=== PATIENT | male | born 1960 | race Two or more races ===

== ENCOUNTER 2016-09-10 19:50 | Emergency (ER) | payer MEDICARE, OTHER ==
[~2016-09-10] VITALS: Ht 172.7 cm; Wt 81.6 kg
[2016-09-10 20:35] LABS: Basophils # (auto) 0.1 uL; Basophils % (auto) 1.1 % (0.0-2.0); Eosinophils # (auto) 0.2 uL; Eosinophils % (auto) 2.2 % (0.0-7.0); Hematocrit 45.5 % (41.0-53.0); Lymphocytes # (auto) 2.8 uL; Lymphocytes % (auto) 37.6 % (10.0-50.0); Mean Corpuscular Hemoglobin 31.3 pg (28.0-32.0); Mean Corpuscular Volume 94.6 fL (80.0-100.0); Mean Platelet Volume 8.5 fL (7.4-10.4); Monocytes # (auto) 0.6 uL; Monocytes % (auto) 8.2 % (0.0-12.0); Neutrophils # (auto) 3.8 uL; Neutrophils % (auto) 50.9 % (37.0-80.0); Platelet Count (auto) 254 10^3/uL (140-450); Red Cell Distribution Width 12.9 % (11.6-16.0); White Blood Cell 7.5 10^3/uL (4.4-10.8)
[2016-09-10 20:57] LABS: Albumin 3.6 g/dL (3.4-5.0); BUN/Creatinine Ratio 12.8; Calcium 8.2 mg/dL (8.5-10.1); Magnesium 2.5 mg/dL (1.6-2.6); Potassium 3.6 mmol/L (3.5-5.1)
[2016-09-10 20:59] LABS: Bilirubin, Total 0.2 mg/dL (0.2-1.0); Total Protein 7.8 g/dL (6.4-8.2)
[2016-09-10 23:25] VITALS: BP 118/67
== END 2016-09-10 23:27 | disposition home or self-care (01) ==
LOC: EDBD 19:50 → ER 20:00
DX: F41.9 Anxiety disorder, unspecified (principal); G82.20 Paraplegia, unspecified
CPT/HCPCS: 36415; 70450; 80053; 83735; 84484; 85025; 85049; 93005

== ENCOUNTER 2021-07-29 12:18 | Inpatient (IN) | payer MEDICARE, OTHER ==
[~2021-07-29] VITALS: Ht 172.7 cm; Wt 80.5 kg
[2021-07-29] MEDS ORDERED: SODIUM CHLORIDE 0.9% 1,000 ML IV ONE ×2 (12:45→17:30)
[2021-07-29 13:25] LABS: White Blood Cell 16.4 10^3/uL (4.4-10.8)
[2021-07-29 13:27] LABS: Hematocrit 45.8 % (41.0-53.0); Hemoglobin 15.2 g/dL (13.5-17.5); Mean Corpuscular Hemoglobin 31.3 pg (28.0-32.0); Mean Corpuscular Hgb Conc. 33.2 g/dL (32.0-36.0); Mean Corpuscular Volume 94.1 fL (80.0-100.0); Red Blood Cells 4.86 10^6/uL (4.5-5.90); Red Cell Distribution Width 13.6 % (11.8-14.3)
[2021-07-29 13:28] LABS: Albumin 2.2 g/dL (3.4-5.0); BUN/Creatinine Ratio 23.2; Basophils % (manual) 0 (0.0-2.0); Blast Cells 0; Calcium 8.6 mg/dL (8.5-10.1); Eosinophils % (manual) 0 (0-7); Metamyelocytes % 0; Potassium 3.9 mmol/L (3.5-5.1); Promyelocytes % 0; Reactive Lymphocytes 0
[2021-07-29 13:30] LABS: Lactic Acid w/Reflex 2.3 mmol/L (0.4-2.0)
[2021-07-29 13:31] LABS: Bilirubin, Total 0.9 mg/dL (0.2-1.0); Total Protein 7.8 g/dL (6.4-8.2)
[2021-07-29 13:52] LABS: Band Neutrophils % (manual) 15; Lymphocytes % (manual) 12 (10.0-50.0); Monocytes % (manual) 3 (0-12); Myelocytes % 2
[2021-07-29] MEDS ORDERED: cefTRIAXone 1GM/50ML D5W 50 ML IV ONE (14:15)
[2021-07-29 22:08] LABS: Urine Bacteria MANY /hpf (None Seen); Urine Blood TRACE /uL (Negative); Urine Hyaline Cast FEW /lpf (0 - 2); Urine Mucus FEW (None Seen); Urine Specific Gravity 1.017 (1.001-1.035); Urine WBC 25 /hpf (0 - 3)
[2021-07-30] MEDS ORDERED: MORPHINE SULFATE INJECTION 2 MG/ML SYRG IV PRN (02:45)
[2021-07-30] MEDS ORDERED: MORPHINE SULFATE 4 MG/ML SYR/VIAL IV PRN (02:45)
[2021-07-30] MEDS ORDERED: NITROGLYCERIN 0.4 MG SL TAB SL PRN (02:45)
[2021-07-30] MEDS ORDERED: ONDANSETRON HCL 4 MG/2 ML VIAL IV PRN (02:45)
[2021-07-30] MEDS: SODIUM CHLORIDE 0.9% 1,000 ML IV SCH ×2 (03:35→11:32)
[2021-07-30] MEDS: HEPARIN SODIUM (PORCINE) 5000 UNITS/ML 1ML VIAL SC SCH ×3 (06:08→22:58)
[2021-07-30 08:16] LABS: Basophils # (auto) 0.1 10 ^3/uL (0-0.2); Basophils % (auto) 0.5 % (0.0-2.0); Eosinophils # (auto) 0.1 10 ^3/uL (0-0.8); Eosinophils % (auto) 0.6 % (0.0-7.0); Hematocrit 39.8 % (41.0-53.0); Lymphocytes # (auto) 1.3 10 ^3/uL (0.4-5.4); Lymphocytes % (auto) 9.6 % (10.0-50.0); Mean Corpuscular Hemoglobin 31.4 pg (28.0-32.0); Mean Corpuscular Hgb Conc. 32.7 g/dL (32.0-36.0); Mean Corpuscular Volume 95.8 fL (80.0-100.0); Neutrophils # (auto) 11.2 10 ^3/uL (1.6-8.6); Neutrophils % (auto) 82.3 % (37.0-80.0); Nucleated Red Blood Cells % 0.1 %; Red Blood Cells 4.15 10^6/uL (4.5-5.90); Red Cell Distribution Width 13.8 % (11.8-14.3); White Blood Cell 13.7 10^3/uL (4.4-10.8)
[2021-07-30 08:30] LABS: INR 1.21 (0.9-1.15); Partial Thromboplastin Time 32.6 sec (23.6-33.0)
[2021-07-30 08:47] LABS: BUN/Creatinine Ratio 25.8; Calcium 7.5 mg/dL (8.5-10.1); Potassium 3.6 mmol/L (3.5-5.1)
[2021-07-30] MEDS: cefTRIAXone 1GM/50ML D5W 50 ML IV SCH (09:10)
[2021-07-30] MEDS: SODIUM BICARBONATE 50ML VIAL 50 ML in SOD CHL 0.45% 1,000 ML IV SCH (18:04)
[2021-07-30 19:08] LABS: Magnesium 2.3 mg/dL (1.6-2.6)
[2021-07-31 01:17] VITALS: BP 105/72
[2021-07-31] MEDS: SODIUM BICARBONATE 50ML VIAL 50 ML in SOD CHL 0.45% 1,000 ML IV SCH ×3 (01:30→18:20)
[2021-07-31 05:00] VITALS: BP 128/70
[2021-07-31] MEDS: HEPARIN SODIUM (PORCINE) 5000 UNITS/ML 1ML VIAL SC SCH ×2 (06:14→13:52)
[2021-07-31 06:51] LABS: Basophils # (auto) 0 10 ^3/uL (0-0.2); Basophils % (auto) 0.2 % (0.0-2.0); Eosinophils # (auto) 0 10 ^3/uL (0-0.8); Eosinophils % (auto) 0.3 % (0.0-7.0); Hematocrit 36.6 % (41.0-53.0); Hemoglobin 12.2 g/dL (13.5-17.5); Lymphocytes # (auto) 1.4 10 ^3/uL (0.4-5.4); Lymphocytes % (auto) 11.2 % (10.0-50.0); Mean Corpuscular Hemoglobin 31.5 pg (28.0-32.0); Mean Corpuscular Hgb Conc. 33.2 g/dL (32.0-36.0); Mean Corpuscular Volume 94.8 fL (80.0-100.0); Monocytes # (auto) 0.7 10 ^3/uL (0-1.3); Monocytes % (auto) 5.6 % (0.0-12.0); Neutrophils # (auto) 10.7 10 ^3/uL (1.6-8.6); Neutrophils % (auto) 82.7 % (37.0-80.0); Red Blood Cells 3.86 10^6/uL (4.5-5.90); Red Cell Distribution Width 13.9 % (11.8-14.3); White Blood Cell 12.9 10^3/uL (4.4-10.8)
[2021-07-31 07:04] LABS: Potassium 3.3 mmol/L (3.5-5.1)
[2021-07-31 07:10] LABS: BUN/Creatinine Ratio 20.3; Calcium 7.9 mg/dL (8.5-10.1)
[2021-07-31 09:00] VITALS: BP 107/66
[2021-07-31 13:04] VITALS: BP 104/65
[2021-07-31] MEDS: cefTRIAXone 1GM/50ML D5W 50 ML IV SCH (13:51)
[2021-07-31 17:00] VITALS: BP 144/83
[2021-07-31 21:31] LABS: Basophils # (auto) 0.1 10 ^3/uL (0-0.2); Eosinophils # (auto) 0 10 ^3/uL (0-0.8); Eosinophils % (auto) 0.4 % (0.0-7.0)
[2021-07-31 21:33] LABS: Basophils % (auto) 0.6 % (0.0-2.0); Lymphocytes # (auto) 1.4 10 ^3/uL (0.4-5.4); Lymphocytes % (auto) 13.1 % (10.0-50.0); Mean Corpuscular Hemoglobin 30.4 pg (28.0-32.0); Mean Corpuscular Hgb Conc. 32.3 g/dL (32.0-36.0); Mean Corpuscular Volume 94.1 fL (80.0-100.0); Monocytes # (auto) 0.6 10 ^3/uL (0-1.3); Monocytes % (auto) 5.7 % (0.0-12.0); Neutrophils # (auto) 8.6 10 ^3/uL (1.6-8.6); Neutrophils % (auto) 80.2 % (37.0-80.0); Nucleated Red Blood Cells % 0.1 %; Red Blood Cells 3.94 10^6/uL (4.5-5.90); Red Cell Distribution Width 13.7 % (11.8-14.3); White Blood Cell 10.7 10^3/uL (4.4-10.8)
[2021-07-31 22:00] VITALS: BP 126/81
[2021-08-01 05:00] VITALS: BP 137/83
[2021-08-01] MEDS: SODIUM BICARBONATE 50ML VIAL 50 ML in SOD CHL 0.45% 1,000 ML IV SCH ×4 (05:04→21:15)
[2021-08-01 05:28] LABS: Basophils # (auto) 0.1 10 ^3/uL (0-0.2); Basophils % (auto) 0.5 % (0.0-2.0); Eosinophils # (auto) 0 10 ^3/uL (0-0.8); Eosinophils % (auto) 0.4 % (0.0-7.0); Hematocrit 35.9 % (41.0-53.0); Hemoglobin 11.9 g/dL (13.5-17.5); Lymphocytes # (auto) 1.5 10 ^3/uL (0.4-5.4); Lymphocytes % (auto) 13.7 % (10.0-50.0); Mean Corpuscular Hemoglobin 31.2 pg (28.0-32.0); Mean Corpuscular Hgb Conc. 33.1 g/dL (32.0-36.0); Mean Corpuscular Volume 94.2 fL (80.0-100.0); Monocytes # (auto) 0.7 10 ^3/uL (0-1.3); Monocytes % (auto) 6.6 % (0.0-12.0); Neutrophils # (auto) 8.8 10 ^3/uL (1.6-8.6); Neutrophils % (auto) 78.8 % (37.0-80.0); Nucleated Red Blood Cells % 0.1 %; Red Blood Cells 3.81 10^6/uL (4.5-5.90); Red Cell Distribution Width 13.3 % (11.8-14.3); White Blood Cell 11.1 10^3/uL (4.4-10.8)
[2021-08-01 09:00] VITALS: BP 159/85
[2021-08-01] MEDS: cefTRIAXone 1GM/50ML D5W 50 ML IV SCH (09:55)
[2021-08-01 13:00] VITALS: BP 111/68
[2021-08-01] MEDS ORDERED: POTASSIUM CHL 20 Meq TABLET PO ONE (13:15)
[2021-08-01 13:55] LABS: Hepatitis C Antibody Negative (Negative)
[2021-08-01 17:00] VITALS: BP 142/83
[2021-08-01] MEDS ORDERED: AMOX500T86 PO ×2 (20:38→20:45)
[2021-08-01 22:24] VITALS: BP 119/72
[2021-08-02 05:00] VITALS: BP 137/75
[2021-08-02] MEDS: SODIUM BICARBONATE 50ML VIAL 50 ML in SOD CHL 0.45% 1,000 ML IV SCH ×2 (05:35→16:44)
[2021-08-02 09:00] VITALS: BP 126/75
[2021-08-02] MEDS: cefTRIAXone 1GM/50ML D5W 50 ML IV SCH (09:37)
[2021-08-02] MEDS ORDERED: AMOX500T86 PO ×2 (11:45→13:08)
== END 2021-08-02 16:36 | disposition home health service (06) | DRG 689 ==
LOC: ER 12:18 → EDBD 12:18 → TELE 07-30 02:35 → TELE-CENTR 07-30 22:15
PROVIDERS: ADMIT Hospitalist; ATTEND Hospitalist
DX: N30.00 Acute cystitis without hematuria (principal); N17.0 Acute kidney failure with tubular necrosis; G82.20 Paraplegia, unspecified; E88.09 Other disorders of plasma-protein metabolism, not elsewhere classified; Z20.822 Contact with and (suspected) exposure to COVID-19; N18.9 Chronic kidney disease, unspecified; E87.6 Hypokalemia; R19.7 Diarrhea, unspecified; E78.5 Hyperlipidemia, unspecified; Z80.9 Family history of malignant neoplasm, unspecified; Z87.440 Personal history of urinary (tract) infections; B96.20 Unspecified Escherichia coli [E. coli] as the cause of diseases classified elsewhere; B96.1 Klebsiella pneumoniae [K. pneumoniae] as the cause of diseases classified elsewhere
CPT/HCPCS: 36415; 70450; 71045; 72125; 76775; 80048; 80053; 81001; 82306; 83036; 83605; 83735; 83970; 84100; 84550; 85007; 85025; 85027; 85048; 85610; 85730; 86803; 87040; 87045; 87086; 87088; 87186; 87340; 87426; 87427; 93005; 96361; 96365; G0378; J0696

== ENCOUNTER 2021-09-04 10:21 | Inpatient (IN) | payer OTHER ==
[~2021-09-04] VITALS: Ht 172.7 cm; Wt 74.5 kg
[~2021-09-04 10:21] MED LIST: AMOX500T86 PO
[2021-09-04 11:41] LABS: Basophils # (auto) 0.1 10 ^3/uL (0-0.2); Basophils % (auto) 0.7 % (0.0-2.0); Eosinophils # (auto) 0.1 10 ^3/uL (0-0.8); Lymphocytes # (auto) 1.8 10 ^3/uL (0.4-5.4); Mean Corpuscular Hgb Conc. 33.2 g/dL (32.0-36.0)
[2021-09-04 11:42] LABS: Eosinophils % (auto) 0.7 % (0.0-7.0); Hematocrit 34.3 % (41.0-53.0); Hemoglobin 11.4 g/dL (13.5-17.5); Mean Corpuscular Volume 90.2 fL (80.0-100.0); Monocytes # (auto) 0.6 10 ^3/uL (0-1.3); Monocytes % (auto) 6.3 % (0.0-12.0); Neutrophils # (auto) 7.6 10 ^3/uL (1.6-8.6); Neutrophils % (auto) 74.3 % (37.0-80.0); Red Cell Distribution Width 14.7 % (11.8-14.3); White Blood Cell 10.2 10^3/uL (4.4-10.8)
[2021-09-04 12:00] LABS: Calcium 8.5 mg/dL (8.5-10.1); Potassium 3.6 mmol/L (3.5-5.1)
[2021-09-04 12:03] LABS: Bilirubin, Total 0.6 mg/dL (0.2-1.0); Total Protein 7.4 g/dL (6.4-8.2)
[2021-09-04 12:06] LABS: Lactic Acid w/Reflex 2.2 mmol/L (0.4-2.0)
[2021-09-04] MEDS ORDERED: IOHEXOL 300 MG/ML 100ML BOTTLE IJ ONE (13:15)
[2021-09-04 14:30] LABS: Urine Bacteria MANY /hpf (None Seen); Urine Blood 1+ /uL (Negative); Urine Specific Gravity 1.021 (1.001-1.035); Urine WBC 374 /hpf (0 - 3); Urine WBC Clumps PRESENT /hpf (None Seen)
[2021-09-04] MEDS ORDERED: SODIUM CHLORIDE 0.9% 500 ML IV ONE (17:15)
[2021-09-04] MEDS ORDERED: PIPERACILLIN-TAZOB 3.375GM 100 ML IV ONE (17:15)
[2021-09-04] MEDS ORDERED: VANCOMYCIN 1GM/250ML 250 ML IV ONE (17:15)
[2021-09-04] MEDS: ENOXAPARIN SOD 80 MG/0.8ML SYRINGE SC SCH (22:45)
[2021-09-04] MEDS ORDERED: hydrALAZINE HCL 10 MG TAB PO PRN (23:45)
[2021-09-04] MEDS ORDERED: ACETAMINOPHEN 325 MG TAB PO PRN (23:45)
[2021-09-04] MEDS ORDERED: HYDROcodone-ACET 5/325MG TAB PO PRN (23:45)
[2021-09-05] MEDS ORDERED: CLINDAMYCIN 600MG IV 50 ML IV SCH (06:00)
[2021-09-05] MEDS: PIPERACILLIN-TAZOB 3.375GM 100 ML IV SCH ×5 (06:28→20:50)
[2021-09-05] MEDS ORDERED: ENOXAPARIN SOD 80 MG/0.8ML SYRINGE SC SCH (10:00)
[2021-09-05] MEDS: ENOXAPARIN SOD 80 MG/0.8ML SYRINGE SC SCH ×2 (10:00→22:00)
[2021-09-05 10:11] VITALS: BP 104/71
[2021-09-05 13:00] VITALS: BP 134/61
[2021-09-05 13:14] LABS: Urine Bacteria FEW /hpf (None Seen); Urine Blood 2+ /uL (Negative); Urine Mucus FEW (None Seen); Urine Specific Gravity 1.039 (1.001-1.035); Urine WBC 158 /hpf (0 - 3)
[2021-09-05] MEDS ORDERED: ROCURONIUM 10MG/ML 10ML VIAL IV ONE (15:35)
[2021-09-05] MEDS ORDERED: fentaNYL CITRATE 100 MCG/2 ML VL ONE (15:35)
[2021-09-05] MEDS ORDERED: MIDAZOLAM HCL 2MG/2ML 2ml VIAL (1mg/ml) ONE (15:35)
[2021-09-05] MEDS: FLUCONAZOLE 200MG/100ML 100 ML IV SCH ×2 (16:00→19:00)
[2021-09-05] MEDS ORDERED: ONDANSETRON HCL 4 MG/2 ML VIAL IV PRN (16:30)
[2021-09-05] MEDS ORDERED: HYDROmorphone HCL 2 MG/ML VL IV PRN (16:30)
[2021-09-05 22:00] VITALS: BP 96/62
[2021-09-06 05:00] VITALS: BP 99/70
[2021-09-06] MEDS: PIPERACILLIN-TAZOB 3.375GM 100 ML IV SCH ×3 (06:46→18:19)
[2021-09-06 09:00] VITALS: BP 118/62
[2021-09-06] MEDS: ENOXAPARIN SOD 80 MG/0.8ML SYRINGE SC SCH ×2 (09:53→23:19)
[2021-09-06] MEDS: FLUCONAZOLE 200MG/100ML 100 ML IV SCH ×2 (09:53→11:49)
[2021-09-06 13:00] VITALS: BP 93/52
[2021-09-06 17:00] VITALS: BP 93/52
[2021-09-06] MEDS ORDERED: TPN PER PHARMACY 0 ML IV SCH (18:30)
[2021-09-06] MEDS ORDERED: AMINO ACID INFUSION IN D10W 1,000 ML IV NR (20:00)
[2021-09-07] MEDS ORDERED: DEXTROSE (50%) 50ML SYRG IV SCH
[2021-09-07] MEDS: PIPERACILLIN-TAZOB 3.375GM 100 ML IV SCH ×4 (00:32→18:31)
[2021-09-07] MEDS: ACCU-CHEK COMFORT CURVE STRIP VI SCH ×4 (00:34→18:29)
[2021-09-07 05:00] VITALS: BP 102/60
[2021-09-07 05:35] LABS: INR 1.1 (0.9-1.15); Partial Thromboplastin Time 39.1 sec (23.6-33.0)
[2021-09-07 05:42] LABS: Magnesium 2.3 mg/dL (1.6-2.6)
[2021-09-07 05:50] LABS: Phosphorus 4.2 mg/dL (2.5-4.90); Pre Albumin 3.5 mg/dL (20.0-40.0)
[2021-09-07 05:56] LABS: Basophils # (auto) 0 10 ^3/uL (0-0.2); Basophils % (auto) 0.7 % (0.0-2.0); Eosinophils # (auto) 0.1 10 ^3/uL (0-0.8); Eosinophils % (auto) 1.6 % (0.0-7.0); Hematocrit 26.9 % (41.0-53.0); Hemoglobin 8.9 g/dL (13.5-17.5); Lymphocytes % (auto) 29.4 % (10.0-50.0); Mean Corpuscular Hemoglobin 29.8 pg (28.0-32.0); Mean Corpuscular Hgb Conc. 33.1 g/dL (32.0-36.0); Mean Corpuscular Volume 90.1 fL (80.0-100.0); Monocytes # (auto) 0.7 10 ^3/uL (0-1.3); Monocytes % (auto) 10.6 % (0.0-12.0); Neutrophils % (auto) 57.7 % (37.0-80.0); Nucleated Red Blood Cells % 0.1 %; Red Blood Cells 2.99 10^6/uL (4.5-5.90); Red Cell Distribution Width 14.5 % (11.8-14.3); White Blood Cell 6.9 10^3/uL (4.4-10.8)
[2021-09-07] MEDS: InsuLIN REG 1unit/0.01ml Soln (100units/ml) SC SCH ×4 (06:00→18:00)
[2021-09-07 09:00] VITALS: BP 110/84
[2021-09-07] MEDS: ENOXAPARIN SOD 80 MG/0.8ML SYRINGE SC SCH ×2 (09:55→22:07)
[2021-09-07] MEDS: FLUCONAZOLE 200MG/100ML 100 ML IV SCH ×2 (09:55→11:26)
[2021-09-07] MEDS ORDERED: LIDOCAINE 1% (LOCAL ANESTH.) PF 5ml SDV ID ONE (11:15)
[2021-09-07 12:13] LABS: Albumin 1.6 g/dL (3.4-5.0); Calcium 7.9 mg/dL (8.5-10.1); Potassium 3.3 mmol/L (3.5-5.1)
[2021-09-07 12:17] LABS: Bilirubin, Total 0.6 mg/dL (0.2-1.0)
[2021-09-07 13:00] VITALS: BP 123/76
[2021-09-07] MEDS ORDERED: POTASSIUM CHL 20MEQ/50ML 50 ML IV ONE (13:15)
[2021-09-07 17:00] VITALS: BP 158/88
[2021-09-07] MEDS ORDERED: TPN PER PHARMACY IV NR ×8 (20:00)
[2021-09-07 22:00] VITALS: BP 120/80
[2021-09-07] MEDS: SODIUM CHLOR 0.9% PF (SALINE LOCK) 10ML VIAL/SYR IV SCH (22:07)
[2021-09-08] MEDS: PIPERACILLIN-TAZOB 3.375GM 100 ML IV SCH ×4 (00:19→18:48)
[2021-09-08 05:00] VITALS: BP 124/78
[2021-09-08] MEDS: InsuLIN REG 1unit/0.01ml Soln (100units/ml) SC SCH ×4 (06:00→18:00)
[2021-09-08] MEDS: ACCU-CHEK COMFORT CURVE STRIP VI SCH ×4 (06:17→18:49)
[2021-09-08 06:32] LABS: Albumin 1.5 g/dL (3.4-5.0); Calcium 7.7 mg/dL (8.5-10.1); Magnesium 2.2 mg/dL (1.6-2.6)
[2021-09-08 06:36] LABS: BUN/Creatinine Ratio 11.4; Bilirubin, Total 0.5 mg/dL (0.2-1.0); Phosphorus 2.9 mg/dL (2.5-4.90)
[2021-09-08 09:00] VITALS: BP 120/85
[2021-09-08] MEDS: SODIUM CHLOR 0.9% PF (SALINE LOCK) 10ML VIAL/SYR IV SCH ×2 (09:33→21:35)
[2021-09-08] MEDS: ENOXAPARIN SOD 80 MG/0.8ML SYRINGE SC SCH ×2 (09:33→21:35)
[2021-09-08] MEDS: FLUCONAZOLE 200MG/100ML 100 ML IV SCH ×2 (09:33→11:17)
[2021-09-08] MEDS ORDERED: POTASSIUM PHOSPHATE 22 MEQ in SODIUM CHL 0.9% 100 ML IV SCH (10:30)
[2021-09-08] MEDS ORDERED: POTASSIUM PHOSPHATE 22 MEQ in SODIUM CHL 0.9% 100 ML IV ONE (12:00)
[2021-09-08 13:00] VITALS: BP 148/86
[2021-09-08 17:00] VITALS: BP 158/88
[2021-09-08 18:35] LABS: Basophils # (auto) 0.1 10 ^3/uL (0-0.2); Basophils % (auto) 0.9 % (0.0-2.0); Eosinophils # (auto) 0.1 10 ^3/uL (0-0.8); Eosinophils % (auto) 1.9 % (0.0-7.0); Hematocrit 27.5 % (41.0-53.0); Hemoglobin 9.1 g/dL (13.5-17.5); Lymphocytes # (auto) 1.7 10 ^3/uL (0.4-5.4); Lymphocytes % (auto) 28.2 % (10.0-50.0); Mean Corpuscular Hemoglobin 29.7 pg (28.0-32.0); Mean Corpuscular Hgb Conc. 33.1 g/dL (32.0-36.0); Mean Corpuscular Volume 89.6 fL (80.0-100.0); Monocytes # (auto) 0.5 10 ^3/uL (0-1.3); Neutrophils # (auto) 3.7 10 ^3/uL (1.6-8.6); Nucleated Red Blood Cells % 0.1 %; Red Blood Cells 3.07 10^6/uL (4.5-5.90); Red Cell Distribution Width 14.6 % (11.8-14.3)
[2021-09-08 18:44] LABS: INR 1.05 (0.9-1.15)
[2021-09-08 18:55] LABS: Albumin 1.6 g/dL (3.4-5.0); BUN/Creatinine Ratio 8.9; Calcium 7.8 mg/dL (8.5-10.1); Potassium 3.1 mmol/L (3.5-5.1)
[2021-09-08 18:58] LABS: Bilirubin, Total 0.3 mg/dL (0.2-1.0); Total Protein 6.2 g/dL (6.4-8.2)
[2021-09-08] MEDS ORDERED: TPN PER PHARMACY IV NR ×8 (20:00)
[2021-09-08 22:00] VITALS: BP 122/69
[2021-09-09] MEDS: ACCU-CHEK COMFORT CURVE STRIP VI SCH ×4 (00:01→17:28)
[2021-09-09] MEDS: PIPERACILLIN-TAZOB 3.375GM 100 ML IV SCH ×4 (00:01→18:00)
[2021-09-09 05:00] VITALS: BP 119/79
[2021-09-09] MEDS: InsuLIN REG 1unit/0.01ml Soln (100units/ml) SC SCH ×4 (05:58→17:28)
[2021-09-09 08:08] LABS: Potassium 3.1 mmol/L (3.5-5.1)
[2021-09-09 08:24] LABS: Albumin 1.6 g/dL (3.4-5.0); BUN/Creatinine Ratio 9.6; Bilirubin, Total 0.4 mg/dL (0.2-1.0); Calcium 7.6 mg/dL (8.5-10.1); Phosphorus 3.2 mg/dL (2.5-4.90)
[2021-09-09] MEDS ORDERED: POTASSIUM PHOSPHATE 22 MEQ in SODIUM CHL 0.9% 100 ML IV ONE (08:45)
[2021-09-09 09:00] VITALS: BP 115/73
[2021-09-09] MEDS: FLUCONAZOLE 200MG/100ML 100 ML IV SCH ×2 (10:29→11:00)
[2021-09-09] MEDS: SODIUM CHLOR 0.9% PF (SALINE LOCK) 10ML VIAL/SYR IV SCH ×2 (10:29→22:00)
[2021-09-09] MEDS: ENOXAPARIN SOD 80 MG/0.8ML SYRINGE SC SCH ×2 (10:29→22:00)
[2021-09-09] MEDS ORDERED: ceFAZolin 1GM VL ONE (10:59)
[2021-09-09] MEDS ORDERED: fentaNYL CITRATE 100 MCG/2 ML VL ONE (12:27)
[2021-09-09] MEDS ORDERED: MEPERIDINE HCL (25 MG/ML) 1ML VIAL ONE (12:27)
[2021-09-09] MEDS ORDERED: MIDAZOLAM HCL 2MG/2ML 2ml VIAL (1mg/ml) ONE (12:28)
[2021-09-09] MEDS ORDERED: ceFAZolin 1GM/50ML 100 ML IV ONE (12:30)
[2021-09-09] MEDS ORDERED: POTASSIUM CHLORIDE 40 MEQ, LIDOCAINE 1% (LOCAL ANESTH.) 4 ML in SODIUM CHL 0.9% 250 ML IV ONE (12:45)
[2021-09-09] MEDS ORDERED: DexAMETHasone SOD PHOS 10MG/1ML VIAL INJ ONE (13:10)
[2021-09-09] MEDS ORDERED: PROPOFOL 10 MG/ML 20 ML IV ONE (13:10)
[2021-09-09] MEDS ORDERED: ePHEDrine SULFATE 50 MG/ML AMP IV PRN (14:45)
[2021-09-09] MEDS ORDERED: ONDANSETRON HCL 4 MG/2 ML VIAL IV PRN (14:45)
[2021-09-09] MEDS ORDERED: LABETALOL HCL 5 MG/ML 4ML SYRINGE IV PRN (14:45)
[2021-09-09] MEDS ORDERED: MORPHINE SULFATE 4 MG/ML SYR/VIAL IV PRN (14:45)
[2021-09-09] MEDS ORDERED: MIDAZOLAM HCL 2MG/2ML 2ml VIAL (1mg/ml) IV PRN (14:45)
[2021-09-09] MEDS ORDERED: HYDROmorphone HCL 2 MG/ML VL IV PRN (14:45)
[2021-09-09 15:00] VITALS: BP 132/87
[2021-09-09 17:00] VITALS: BP 151/85
[2021-09-09] MEDS: TPN PER PHARMACY IV NR ×8 (21:05)
[2021-09-09 21:49] VITALS: BP 129/85
[2021-09-10] MEDS: ACCU-CHEK COMFORT CURVE STRIP VI SCH ×4 (00:14→18:00)
[2021-09-10] MEDS: PIPERACILLIN-TAZOB 3.375GM 100 ML IV SCH ×4 (00:14→18:00)
[2021-09-10] MEDS: InsuLIN REG 1unit/0.01ml Soln (100units/ml) SC SCH ×4 (00:15→18:00)
[2021-09-10 04:33] VITALS: BP 127/70
[2021-09-10 08:26] LABS: Potassium 4.1 mmol/L (3.5-5.1)
[2021-09-10 08:27] LABS: Basophils # (auto) 0 10 ^3/uL (0-0.2); Basophils % (auto) 0.1 % (0.0-2.0); Eosinophils # (auto) 0 10 ^3/uL (0-0.8); Hematocrit 26.3 % (41.0-53.0); Hemoglobin 8.8 g/dL (13.5-17.5); INR 1.02 (0.9-1.15); Lymphocytes # (auto) 1.2 10 ^3/uL (0.4-5.4); Lymphocytes % (auto) 14.5 % (10.0-50.0); Mean Corpuscular Hemoglobin 29.7 pg (28.0-32.0); Mean Corpuscular Hgb Conc. 33.5 g/dL (32.0-36.0); Mean Corpuscular Volume 88.8 fL (80.0-100.0); Monocytes # (auto) 0.4 10 ^3/uL (0-1.3); Monocytes % (auto) 4.6 % (0.0-12.0); Neutrophils # (auto) 6.5 10 ^3/uL (1.6-8.6); Neutrophils % (auto) 80.8 % (37.0-80.0); Nucleated Red Blood Cells % 0.1 %; Partial Thromboplastin Time 33.1 sec (23.6-33.0); Red Blood Cells 2.97 10^6/uL (4.5-5.90); Red Cell Distribution Width 14.4 % (11.8-14.3)
[2021-09-10 08:40] LABS: Albumin 1.6 g/dL (3.4-5.0); BUN/Creatinine Ratio 11.8; Bilirubin, Total 0.2 mg/dL (0.2-1.0); Calcium 7.7 mg/dL (8.5-10.1); Magnesium 2.9 mg/dL (1.6-2.6); Phosphorus 2.2 mg/dL (2.5-4.90); Total Protein 5.4 g/dL (6.4-8.2)
[2021-09-10] MEDS: FLUCONAZOLE 200MG/100ML 100 ML IV SCH ×2 (10:08→11:00)
[2021-09-10] MEDS: SODIUM CHLOR 0.9% PF (SALINE LOCK) 10ML VIAL/SYR IV SCH ×2 (10:08→22:06)
[2021-09-10] MEDS: ENOXAPARIN SOD 80 MG/0.8ML SYRINGE SC SCH ×2 (10:08→22:06)
[2021-09-10] MEDS ORDERED: SODIUM PHOSPHATES 20 MEQ in SODIUM CHL 0.9% 100 ML IV ONE (10:15)
[2021-09-10] MEDS: TPN PER PHARMACY IV NR ×8 (19:55)
[2021-09-10] MEDS ORDERED: TPN PER PHARMACY IV NR ×6 (20:00)
[2021-09-10 22:56] VITALS: BP 150/88
[2021-09-11] MEDS: ACCU-CHEK COMFORT CURVE STRIP VI SCH ×4 (00:08→18:00)
[2021-09-11] MEDS: InsuLIN REG 1unit/0.01ml Soln (100units/ml) SC SCH ×4 (00:10→18:00)
[2021-09-11 05:07] LABS: Hematocrit 26.8 % (41.0-53.0); Hemoglobin 8.7 g/dL (13.5-17.5)
[2021-09-11 05:26] VITALS: BP 128/80
[2021-09-11 05:31] LABS: Potassium 3.8 mmol/L (3.5-5.1)
[2021-09-11 05:45] LABS: Albumin 1.8 g/dL (3.4-5.0); BUN/Creatinine Ratio 11.4; Calcium 7.9 mg/dL (8.5-10.1); Magnesium 2.8 mg/dL (1.6-2.6); Total Protein 6.4 g/dL (6.4-8.2)
[2021-09-11] MEDS: PIPERACILLIN-TAZOB 3.375GM 100 ML IV SCH ×4 (06:03→18:00)
[2021-09-11 06:20] LABS: Bilirubin, Total 0.3 mg/dL (0.2-1.0)
[2021-09-11 07:49] VITALS: BP 135/76
[2021-09-11] MEDS: SODIUM CHLOR 0.9% PF (SALINE LOCK) 10ML VIAL/SYR IV SCH ×2 (10:26→21:32)
[2021-09-11] MEDS: FLUCONAZOLE 200MG/100ML 100 ML IV SCH ×2 (10:26→11:00)
[2021-09-11] MEDS: ENOXAPARIN SOD 80 MG/0.8ML SYRINGE SC SCH ×2 (10:26→21:32)
[2021-09-11] MEDS ORDERED: POTASSIUM PHOSPHATE 26.4 MEQ in SODIUM CHL 0.9% 100 ML IV ONE (11:00)
[2021-09-11 11:38] VITALS: BP 119/74
[2021-09-11] MEDS ORDERED: GOLYTELY 4L KIT PO ONE (14:45)
[2021-09-11 16:56] VITALS: BP 87/53
[2021-09-11] MEDS ORDERED: SODIUM CHLORIDE 0.9% 1,000 ML IV ONE (17:00)
[2021-09-11 18:05] VITALS: BP 119/72
[2021-09-11 19:22] LABS: Hematocrit 22.7 % (41.0-53.0); Hemoglobin 7.5 g/dL (13.5-17.5)
[2021-09-11] MEDS ORDERED: TPN PER PHARMACY IV NR ×7 (20:00)
[2021-09-11 22:00] VITALS: BP 117/80
[2021-09-12] MEDS: ACCU-CHEK COMFORT CURVE STRIP VI SCH ×5 (00:15→23:52)
[2021-09-12] MEDS: PIPERACILLIN-TAZOB 3.375GM 100 ML IV SCH ×4 (00:16→23:52)
[2021-09-12 05:00] VITALS: BP 128/80
[2021-09-12] MEDS: InsuLIN REG 1unit/0.01ml Soln (100units/ml) SC SCH ×4 (05:36→18:00)
[2021-09-12 09:00] VITALS: BP 123/78
[2021-09-12] MEDS: FLUCONAZOLE 200MG/100ML 100 ML IV SCH ×2 (09:45→11:00)
[2021-09-12] MEDS: ENOXAPARIN SOD 80 MG/0.8ML SYRINGE SC SCH ×3 (09:46→21:34)
[2021-09-12] MEDS: SODIUM CHLOR 0.9% PF (SALINE LOCK) 10ML VIAL/SYR IV SCH ×2 (09:46→21:31)
[2021-09-12 12:18] LABS: Basophils # (auto) 0 10 ^3/uL (0-0.2); Eosinophils # (auto) 0.1 10 ^3/uL (0-0.8); Eosinophils % (auto) 0.7 % (0.0-7.0); Monocytes # (auto) 0.5 10 ^3/uL (0-1.3)
[2021-09-12 12:20] LABS: Basophils % (auto) 0.5 % (0.0-2.0); Hematocrit 22.6 % (41.0-53.0); Hemoglobin 7.7 g/dL (13.5-17.5); Lymphocytes # (auto) 1.7 10 ^3/uL (0.4-5.4); Lymphocytes % (auto) 19.9 % (10.0-50.0); Mean Corpuscular Hemoglobin 30.4 pg (28.0-32.0); Mean Corpuscular Hgb Conc. 33.9 g/dL (32.0-36.0); Mean Corpuscular Volume 89.6 fL (80.0-100.0); Monocytes % (auto) 6.3 % (0.0-12.0); Neutrophils # (auto) 6.3 10 ^3/uL (1.6-8.6); Neutrophils % (auto) 72.6 % (37.0-80.0); Nucleated Red Blood Cells % 0.1 %; Red Blood Cells 2.52 10^6/uL (4.5-5.90); Red Cell Distribution Width 14.8 % (11.8-14.3); White Blood Cell 8.7 10^3/uL (4.4-10.8)
[2021-09-12 12:28] LABS: INR 1.02 (0.9-1.15); Partial Thromboplastin Time 30.8 sec (23.6-33.0)
[2021-09-12 12:30] VITALS: BP 124/74
[2021-09-12 12:40] LABS: Albumin 1.5 g/dL (3.4-5.0); Calcium 7.5 mg/dL (8.5-10.1); Magnesium 1.8 mg/dL (1.6-2.6); Potassium 3.7 mmol/L (3.5-5.1)
[2021-09-12 12:42] LABS: BUN/Creatinine Ratio 16.3
[2021-09-12 12:54] LABS: Bilirubin, Total 0.2 mg/dL (0.2-1.0); Phosphorus 2.7 mg/dL (2.5-4.90); Total Protein 5.6 g/dL (6.4-8.2)
[2021-09-12] MEDS: SODIUM FERR GLUC 62.5MG/5ML 125 MG in SODIUM CHL 0.9% 100 ML IV SCH (16:44)
[2021-09-12] MEDS ORDERED: GOLYTELY 4L KIT PO ONE (16:45)
[2021-09-12 17:00] VITALS: BP 127/86
[2021-09-12] MEDS: ONDANSETRON HCL 4 MG/2 ML VIAL IV PRN ×2 (19:42→23:52)
[2021-09-12] MEDS ORDERED: TPN PER PHARMACY IV NR ×8 (20:00)
[2021-09-12 22:29] VITALS: BP 112/75
[2021-09-12] MEDS ORDERED: PANTOPRAZOLE 40 MG/10 ML VIAL INJ IV ONE (23:15)
[2021-09-13] MEDS: InsuLIN REG 1unit/0.01ml Soln (100units/ml) SC SCH ×5 (00:04→23:47)
[2021-09-13] MEDS: ONDANSETRON HCL 4 MG/2 ML VIAL IV PRN ×3 (00:33→12:47)
[2021-09-13] MEDS: MORPHINE SULFATE INJECTION 2 MG/ML SYRG IV PRN ×3 (04:28→13:55)
[2021-09-13 05:07] VITALS: BP 134/89
[2021-09-13] MEDS: PIPERACILLIN-TAZOB 3.375GM 100 ML IV SCH ×3 (06:25→23:46)
[2021-09-13] MEDS: ACCU-CHEK COMFORT CURVE STRIP VI SCH ×4 (06:25→23:46)
[2021-09-13 07:06] LABS: Potassium 3.8 mmol/L (3.5-5.1)
[2021-09-13 07:18] LABS: Albumin 1.7 g/dL (3.4-5.0); Bilirubin, Total 0.3 mg/dL (0.2-1.0); Calcium 7.6 mg/dL (8.5-10.1); Magnesium 1.7 mg/dL (1.6-2.6); Phosphorus 3.2 mg/dL (2.5-4.90); Total Protein 5.4 g/dL (6.4-8.2)
[2021-09-13] MEDS ORDERED: diphenhdrAMINE HCL 50 MG/1 ML VL ONE (08:40)
[2021-09-13] MEDS ORDERED: MIDAZOLAM HCL 5 MG/ML-1ML VIAL ONE (08:40)
[2021-09-13] MEDS ORDERED: fentaNYL CITRATE 100 MCG/2 ML VL ONE (08:40)
[2021-09-13] MEDS: PANTOPRAZOLE 40 MG/10 ML VIAL INJ IV SCH (09:14)
[2021-09-13] MEDS: FLUCONAZOLE 200MG/100ML 100 ML IV SCH ×2 (09:14→11:00)
[2021-09-13] MEDS: SODIUM CHLOR 0.9% PF (SALINE LOCK) 10ML VIAL/SYR IV SCH ×2 (09:15→21:47)
[2021-09-13] MEDS: ENOXAPARIN SOD 80 MG/0.8ML SYRINGE SC SCH ×2 (09:15→21:47)
[2021-09-13 13:00] VITALS: BP 155/97
[2021-09-13] MEDS: SODIUM FERR GLUC 62.5MG/5ML 125 MG in SODIUM CHL 0.9% 100 ML IV SCH (13:40)
[2021-09-13 17:00] VITALS: BP 95/65
[2021-09-13] MEDS ORDERED: TPN PER PHARMACY IV NR ×10 (20:00)
[2021-09-13 22:16] VITALS: BP 110/74
[2021-09-14] VITALS (8 sets, daily range): BP systolic 110–152; BP diastolic 69–88
[2021-09-14] MEDS: ACCU-CHEK COMFORT CURVE STRIP VI SCH ×3 (06:00→18:37)
[2021-09-14] MEDS: InsuLIN REG 1unit/0.01ml Soln (100units/ml) SC SCH ×3 (06:00→18:00)
[2021-09-14] MEDS: PIPERACILLIN-TAZOB 3.375GM 100 ML IV SCH ×3 (06:00→18:37)
[2021-09-14 08:28] LABS: Albumin 1.6 g/dL (3.4-5.0); Magnesium 2.8 mg/dL (1.6-2.6); Potassium 3.5 mmol/L (3.5-5.1)
[2021-09-14 08:34] LABS: BUN/Creatinine Ratio 25.6; Bilirubin, Total 0.2 mg/dL (0.2-1.0); Phosphorus 3.1 mg/dL (2.5-4.90); Pre Albumin 13.6 mg/dL (20.0-40.0); Total Protein 5.7 g/dL (6.4-8.2)
[2021-09-14 09:29] LABS: Monocytes # (auto) 0.6 10 ^3/uL (0-1.3); Nucleated Red Blood Cells % 0.1 %; White Blood Cell 8.4 10^3/uL (4.4-10.8)
[2021-09-14 09:31] LABS: Basophils # (auto) 0 10 ^3/uL (0-0.2); Basophils % (auto) 0.4 % (0.0-2.0); Eosinophils # (auto) 0.1 10 ^3/uL (0-0.8); Eosinophils % (auto) 0.6 % (0.0-7.0); Hematocrit 20.6 % (41.0-53.0); Lymphocytes # (auto) 1.8 10 ^3/uL (0.4-5.4); Lymphocytes % (auto) 21.7 % (10.0-50.0); Mean Corpuscular Hemoglobin 29.8 pg (28.0-32.0); Mean Corpuscular Volume 90.1 fL (80.0-100.0); Monocytes % (auto) 7.7 % (0.0-12.0); Neutrophils # (auto) 5.8 10 ^3/uL (1.6-8.6); Neutrophils % (auto) 69.6 % (37.0-80.0); Red Blood Cells 2.29 10^6/uL (4.5-5.90); Red Cell Distribution Width 15.3 % (11.8-14.3)
[2021-09-14 09:43] LABS: Hemoglobin 6.8 g/dL (13.5-17.5)
[2021-09-14] MEDS: ENOXAPARIN SOD 80 MG/0.8ML SYRINGE SC SCH ×2 (10:00→21:59)
[2021-09-14] MEDS: FLUCONAZOLE 200MG/100ML 100 ML IV SCH ×2 (10:36→12:51)
[2021-09-14] MEDS: PANTOPRAZOLE 40 MG/10 ML VIAL INJ IV SCH (10:36)
[2021-09-14] MEDS: SODIUM CHLOR 0.9% PF (SALINE LOCK) 10ML VIAL/SYR IV SCH ×2 (10:37→21:59)
[2021-09-14] MEDS: POTASSIUM CHL 10MEQ/50ML 50 ML IV SCH ×2 (10:37→12:28)
[2021-09-14] MEDS: SODIUM FERR GLUC 62.5MG/5ML 125 MG in SODIUM CHL 0.9% 100 ML IV SCH (14:21)
[2021-09-14] MEDS: ALBUMIN 25% 100 ML IV SCH (15:39)
[2021-09-14] MEDS ORDERED: TPN PER PHARMACY IV NR ×8 (20:00)
[2021-09-15] MEDS: ACCU-CHEK COMFORT CURVE STRIP VI SCH ×4 (00:09→17:54)
[2021-09-15] MEDS: PIPERACILLIN-TAZOB 3.375GM 100 ML IV SCH ×4 (00:11→18:00)
[2021-09-15 00:27] VITALS: BP 142/62
[2021-09-15 02:14] LABS: Hematocrit 28.8 % (41.0-53.0); Hemoglobin 9.4 g/dL (13.5-17.5)
[2021-09-15] MEDS: ONDANSETRON HCL 4 MG/2 ML VIAL IV PRN ×2 (02:28→16:50)
[2021-09-15 04:53] VITALS: BP 146/81
[2021-09-15 06:14] LABS: Albumin 2.2 g/dL (3.4-5.0); Magnesium 2.8 mg/dL (1.6-2.6); Potassium 3.9 mmol/L (3.5-5.1)
[2021-09-15 06:17] LABS: BUN/Creatinine Ratio 18.9; Bilirubin, Total 0.4 mg/dL (0.2-1.0); Phosphorus 2.9 mg/dL (2.5-4.90); Total Protein 6.4 g/dL (6.4-8.2)
[2021-09-15] MEDS: InsuLIN REG 1unit/0.01ml Soln (100units/ml) SC SCH ×4 (06:28→17:53)
[2021-09-15 08:15] VITALS: BP 110/73
[2021-09-15] MEDS: ALBUMIN 25% 100 ML IV SCH (10:00)
[2021-09-15] MEDS: SODIUM CHLOR 0.9% PF (SALINE LOCK) 10ML VIAL/SYR IV SCH ×2 (10:00→22:00)
[2021-09-15] MEDS: ENOXAPARIN SOD 80 MG/0.8ML SYRINGE SC SCH ×2 (10:30→22:01)
[2021-09-15] MEDS: PANTOPRAZOLE 40 MG/10 ML VIAL INJ IV SCH (10:30)
[2021-09-15] MEDS: FLUCONAZOLE 200MG/100ML 100 ML IV SCH ×4 (10:31→14:05)
[2021-09-15 12:15] VITALS: BP 118/73
[2021-09-15] MEDS ORDERED: IRON SUCROSE COMPLEX 200 MG in SODIUM CHL 0.9% 100 ML IV ONE (14:00)
[2021-09-15] MEDS ORDERED: SODIUM FERR GLUC 62.5MG/5ML 125 MG in SODIUM CHL 0.9% 100 ML IV ONE (14:15)
[2021-09-15] MEDS: SODIUM FERR GLUC 62.5MG/5ML 125 MG in SODIUM CHL 0.9% 100 ML IV SCH (16:51)
[2021-09-15 17:15] VITALS: BP 125/75
[2021-09-15] MEDS ORDERED: TPN PER PHARMACY IV NR ×9 (20:00)
[2021-09-15 22:00] VITALS: BP 127/81
[2021-09-16] MEDS: ACCU-CHEK COMFORT CURVE STRIP VI SCH ×4 (00:55→18:04)
[2021-09-16] MEDS: PIPERACILLIN-TAZOB 3.375GM 100 ML IV SCH ×4 (00:55→18:00)
[2021-09-16 05:00] VITALS: BP 128/81
[2021-09-16] MEDS: InsuLIN REG 1unit/0.01ml Soln (100units/ml) SC SCH ×4 (06:18→18:00)
[2021-09-16] MEDS: ONDANSETRON HCL 4 MG/2 ML VIAL IV PRN ×3 (06:50→21:17)
[2021-09-16 07:16] LABS: Calcium 8.5 mg/dL (8.5-10.1); Magnesium 2.1 mg/dL (1.6-2.6); Potassium 3.5 mmol/L (3.5-5.1)
[2021-09-16 07:18] LABS: BUN/Creatinine Ratio 21.4
[2021-09-16 07:21] LABS: Bilirubin, Total 0.4 mg/dL (0.2-1.0); Phosphorus 3.1 mg/dL (2.5-4.90); Total Protein 6.4 g/dL (6.4-8.2)
[2021-09-16 08:00] VITALS: BP 119/79
[2021-09-16 09:05] VITALS: BP 119/79
[2021-09-16] MEDS: ALBUMIN 25% 100 ML IV SCH (10:14)
[2021-09-16] MEDS: ENOXAPARIN SOD 80 MG/0.8ML SYRINGE SC SCH ×2 (10:29→21:21)
[2021-09-16] MEDS: PANTOPRAZOLE 40 MG/10 ML VIAL INJ IV SCH (10:35)
[2021-09-16] MEDS: SODIUM CHLOR 0.9% PF (SALINE LOCK) 10ML VIAL/SYR IV SCH ×2 (10:41→21:21)
[2021-09-16] MEDS ORDERED: POTASSIUM CHL 10MEQ/50ML 50 ML IV ONE ×3 (12:00→17:45)
[2021-09-16 13:00] VITALS: BP 122/79
[2021-09-16] MEDS: MORPHINE SULFATE INJECTION 2 MG/ML SYRG IV PRN ×2 (15:20→21:17)
[2021-09-16 17:10] VITALS: BP 109/73
[2021-09-16] MEDS ORDERED: TPN PER PHARMACY IV NR ×8 (20:00)
[2021-09-16 20:02] LABS: Basophils # (auto) 0.1 10 ^3/uL (0-0.2); Eosinophils # (auto) 0.1 10 ^3/uL (0-0.8); Hemoglobin 7.4 g/dL (13.5-17.5); Monocytes # (auto) 0.6 10 ^3/uL (0-1.3); Red Blood Cells 2.47 10^6/uL (4.5-5.90)
[2021-09-16 20:06] LABS: Basophils % (auto) 1.1 % (0.0-2.0); Eosinophils % (auto) 0.9 % (0.0-7.0); Lymphocytes # (auto) 1.7 10 ^3/uL (0.4-5.4); Lymphocytes % (auto) 27.3 % (10.0-50.0); Mean Corpuscular Hemoglobin 29.9 pg (28.0-32.0); Mean Corpuscular Hgb Conc. 33.6 g/dL (32.0-36.0); Mean Corpuscular Volume 89.1 fL (80.0-100.0); Monocytes % (auto) 9.8 % (0.0-12.0); Neutrophils # (auto) 3.8 10 ^3/uL (1.6-8.6); Neutrophils % (auto) 60.9 % (37.0-80.0); Nucleated Red Blood Cells % 0.2 %; Red Cell Distribution Width 15.2 % (11.8-14.3); White Blood Cell 6.3 10^3/uL (4.4-10.8)
[2021-09-17] MEDS: ACCU-CHEK COMFORT CURVE STRIP VI SCH ×4 (00:15→16:48)
[2021-09-17] MEDS: PIPERACILLIN-TAZOB 3.375GM 100 ML IV SCH ×4 (00:38→16:47)
[2021-09-17 04:00] VITALS: BP 120/80
[2021-09-17] MEDS: ONDANSETRON HCL 4 MG/2 ML VIAL IV PRN (04:33)
[2021-09-17] MEDS: MORPHINE SULFATE INJECTION 2 MG/ML SYRG IV PRN (04:35)
[2021-09-17] MEDS: InsuLIN REG 1unit/0.01ml Soln (100units/ml) SC SCH ×4 (06:00→16:48)
[2021-09-17 07:10] LABS: Albumin 1.9 g/dL (3.4-5.0); Calcium 8.4 mg/dL (8.5-10.1); Magnesium 2.1 mg/dL (1.6-2.6); Potassium 3.9 mmol/L (3.5-5.1)
[2021-09-17 07:13] LABS: BUN/Creatinine Ratio 24.2
[2021-09-17 07:15] LABS: Bilirubin, Total 0.4 mg/dL (0.2-1.0); Phosphorus 2.8 mg/dL (2.5-4.90); Total Protein 6.2 g/dL (6.4-8.2)
[2021-09-17 09:00] VITALS: BP 136/85
[2021-09-17] MEDS: ENOXAPARIN SOD 80 MG/0.8ML SYRINGE SC SCH ×2 (10:00→22:43)
[2021-09-17] MEDS: PANTOPRAZOLE 40 MG/10 ML VIAL INJ IV SCH (10:40)
[2021-09-17] MEDS: FLUCONAZOLE 200MG/100ML 100 ML IV SCH ×2 (10:40→11:44)
[2021-09-17] MEDS: SODIUM CHLOR 0.9% PF (SALINE LOCK) 10ML VIAL/SYR IV SCH ×2 (10:41→22:43)
[2021-09-17 13:00] VITALS: BP 136/85
[2021-09-17 17:00] VITALS: BP 123/87
[2021-09-17 20:00] VITALS: BP 129/85
[2021-09-17] MEDS ORDERED: TPN PER PHARMACY IV NR ×8 (20:00)
[2021-09-17 22:00] VITALS: BP_SYST 127; BP_SYST 129; BP_DIAS 85
[2021-09-18] VITALS (9 sets, daily range): BP systolic 88–135; BP diastolic 62–86
[2021-09-18] MEDS: PIPERACILLIN-TAZOB 3.375GM 100 ML IV SCH ×4 (00:01→17:46)
[2021-09-18] MEDS: MORPHINE SULFATE INJECTION 2 MG/ML SYRG IV PRN (00:08)
[2021-09-18] MEDS: InsuLIN REG 1unit/0.01ml Soln (100units/ml) SC SCH ×4 (06:00→17:48)
[2021-09-18] MEDS: ACCU-CHEK COMFORT CURVE STRIP VI SCH ×4 (06:00→17:48)
[2021-09-18 08:38] LABS: Albumin 2.3 g/dL (3.4-5.0); Calcium 8.2 mg/dL (8.5-10.1); Magnesium 2.7 mg/dL (1.6-2.6); Potassium 3.8 mmol/L (3.5-5.1)
[2021-09-18 08:43] LABS: BUN/Creatinine Ratio 22.6; Bilirubin, Total 0.6 mg/dL (0.2-1.0); Total Protein 6.5 g/dL (6.4-8.2)
[2021-09-18] MEDS ORDERED: fentaNYL CITRATE 100 MCG/2 ML VL ONE (09:24)
[2021-09-18] MEDS ORDERED: MIDAZOLAM HCL 2MG/2ML 2ml VIAL (1mg/ml) ONE ×2 (09:25→11:56)
[2021-09-18] MEDS ORDERED: LIDOCAINE 2%HCL (LOCAL ANESTH.) INJ 20ML MDV ONE (09:25)
[2021-09-18] MEDS ORDERED: IOHEXOL 350 MG/ML 100ML IJ ONE (09:25)
[2021-09-18] MEDS: ENOXAPARIN SOD 80 MG/0.8ML SYRINGE SC SCH (10:00)
[2021-09-18] MEDS: SODIUM CHLOR 0.9% PF (SALINE LOCK) 10ML VIAL/SYR IV SCH ×2 (10:00→23:09)
[2021-09-18] MEDS: FLUCONAZOLE 200MG/100ML 100 ML IV SCH ×2 (11:00→11:45)
[2021-09-18] MEDS: PANTOPRAZOLE 40 MG/10 ML VIAL INJ IV SCH (11:45)
[2021-09-18] MEDS ORDERED: PROPOFOL 10 MG/ML 20 ML IV ONE (11:56)
[2021-09-18] MEDS ORDERED: SODIUM CHLORIDE LOCK 10 ML ONE (11:56)
[2021-09-18] MEDS ORDERED: ONDANSETRON HCL 4 MG/2 ML VIAL ONE (11:56)
[2021-09-18] MEDS ORDERED: ceFAZolin 1GM VL ONE (13:26)
[2021-09-18] MEDS ORDERED: TPN PER PHARMACY IV NR ×9 (20:00)
[2021-09-18 23:32] LABS: Red Cell Distribution Width 15.4 % (11.8-14.3); White Blood Cell 4.9 10^3/uL (4.4-10.8)
[2021-09-18 23:34] LABS: Hematocrit 20.9 % (41.0-53.0); Mean Corpuscular Hgb Conc. 33.7 g/dL (32.0-36.0); Mean Corpuscular Volume 89.1 fL (80.0-100.0); Red Blood Cells 2.34 10^6/uL (4.5-5.90)
[2021-09-18 23:46] LABS: Basophils % (manual) 0 (0.0-2.0); Blast Cells 0; Metamyelocytes % 0; Promyelocytes % 0; Reactive Lymphocytes 0
[2021-09-19] MEDS: PIPERACILLIN-TAZOB 3.375GM 100 ML IV SCH ×4 (00:20→18:00)
[2021-09-19] MEDS: ACCU-CHEK COMFORT CURVE STRIP VI SCH ×4 (00:23→17:59)
[2021-09-19 01:23] LABS: Band Neutrophils % (manual) 12; Eosinophils % (manual) 1 (0-7); Lymphocytes % (manual) 27 (10.0-50.0); Monocytes % (manual) 10 (0-12); Myelocytes % 1
[2021-09-19 05:00] VITALS: BP 112/73
[2021-09-19] MEDS: InsuLIN REG 1unit/0.01ml Soln (100units/ml) SC SCH ×4 (05:19→17:59)
[2021-09-19 08:18] LABS: Potassium 3.8 mmol/L (3.5-5.1)
[2021-09-19 08:27] LABS: Albumin 2.1 g/dL (3.4-5.0); BUN/Creatinine Ratio 24.2; Bilirubin, Total 0.5 mg/dL (0.2-1.0); Calcium 7.9 mg/dL (8.5-10.1); Magnesium 2.6 mg/dL (1.6-2.6); Phosphorus 3.2 mg/dL (2.5-4.90); Total Protein 6.3 g/dL (6.4-8.2)
[2021-09-19 08:30] LABS: Basophils # (auto) 0.1 10 ^3/uL (0-0.2); Basophils % (auto) 1.2 % (0.0-2.0); Eosinophils # (auto) 0 10 ^3/uL (0-0.8); Eosinophils % (auto) 0.9 % (0.0-7.0); Hematocrit 21.8 % (41.0-53.0); Hemoglobin 7.1 g/dL (13.5-17.5); Lymphocytes # (auto) 1.9 10 ^3/uL (0.4-5.4); Mean Corpuscular Hemoglobin 29.5 pg (28.0-32.0); Mean Corpuscular Hgb Conc. 32.5 g/dL (32.0-36.0); Mean Corpuscular Volume 90.7 fL (80.0-100.0); Monocytes # (auto) 0.5 10 ^3/uL (0-1.3); Monocytes % (auto) 10.3 % (0.0-12.0); Neutrophils # (auto) 2.6 10 ^3/uL (1.6-8.6); Neutrophils % (auto) 50.6 % (37.0-80.0); Red Blood Cells 2.41 10^6/uL (4.5-5.90); Red Cell Distribution Width 15.4 % (11.8-14.3); White Blood Cell 5.1 10^3/uL (4.4-10.8)
[2021-09-19 09:00] VITALS: BP 110/73
[2021-09-19] MEDS: FLUCONAZOLE 200MG/100ML 100 ML IV SCH ×2 (09:43→12:01)
[2021-09-19] MEDS: PANTOPRAZOLE 40 MG/10 ML VIAL INJ IV SCH (09:43)
[2021-09-19] MEDS: SODIUM CHLOR 0.9% PF (SALINE LOCK) 10ML VIAL/SYR IV SCH ×2 (09:43→22:00)
[2021-09-19 13:00] VITALS: BP 114/74
[2021-09-19 17:00] VITALS: BP 125/75
[2021-09-19] MEDS ORDERED: TPN PER PHARMACY IV NR ×9 (20:00)
[2021-09-19] MEDS: ONDANSETRON HCL 4 MG/2 ML VIAL IV PRN (20:35)
[2021-09-19 21:00] VITALS: BP 129/84
[2021-09-19] MEDS: MORPHINE SULFATE INJECTION 2 MG/ML SYRG IV PRN (21:18)
[2021-09-20] MEDS: PIPERACILLIN-TAZOB 3.375GM 100 ML IV SCH ×5 (00:02→23:49)
[2021-09-20] MEDS: ACCU-CHEK COMFORT CURVE STRIP VI SCH ×5 (00:03→23:22)
[2021-09-20 04:40] VITALS: BP 117/88
[2021-09-20] MEDS: ONDANSETRON HCL 4 MG/2 ML VIAL IV PRN ×3 (06:24→22:13)
[2021-09-20] MEDS: InsuLIN REG 1unit/0.01ml Soln (100units/ml) SC SCH ×5 (06:28→23:21)
[2021-09-20] MEDS: PANTOPRAZOLE 40 MG/10 ML VIAL INJ IV SCH (08:55)
[2021-09-20] MEDS: FLUCONAZOLE 200MG/100ML 100 ML IV SCH ×2 (08:55→10:47)
[2021-09-20 09:00] VITALS: BP 115/77
[2021-09-20] MEDS: CALCIUM CARB 500 MG CHEW TAB PO PRN (09:00)
[2021-09-20 10:17] LABS: Calcium 8.5 mg/dL (8.5-10.1); Potassium 3.9 mmol/L (3.5-5.1)
[2021-09-20 10:26] LABS: Albumin 2.2 g/dL (3.4-5.0); Bilirubin, Total 0.6 mg/dL (0.2-1.0); Magnesium 1.8 mg/dL (1.6-2.6); Phosphorus 2.5 mg/dL (2.5-4.90); Pre Albumin 26.6 mg/dL (20.0-40.0); Total Protein 6.8 g/dL (6.4-8.2)
[2021-09-20] MEDS: SODIUM CHLOR 0.9% PF (SALINE LOCK) 10ML VIAL/SYR IV SCH ×2 (10:47→22:12)
[2021-09-20 13:00] VITALS: BP 117/77
[2021-09-20] MEDS ORDERED: POTASSIUM PHOSP 22MEQ(15MMOLE) in NS 100 ML IV ONE (14:00)
[2021-09-20 17:13] VITALS: BP 111/76
[2021-09-20 18:14] LABS: Basophils # (auto) 0 10 ^3/uL (0-0.2); Eosinophils # (auto) 0.1 10 ^3/uL (0-0.8); Hemoglobin 7.2 g/dL (13.5-17.5); Nucleated Red Blood Cells % 0.1 %
[2021-09-20 18:17] LABS: Basophils % (auto) 0.7 % (0.0-2.0); Eosinophils % (auto) 0.9 % (0.0-7.0); Hematocrit 21.7 % (41.0-53.0); Lymphocytes # (auto) 1.2 10 ^3/uL (0.4-5.4); Lymphocytes % (auto) 19.2 % (10.0-50.0); Mean Corpuscular Hemoglobin 29.8 pg (28.0-32.0); Mean Corpuscular Hgb Conc. 33.1 g/dL (32.0-36.0); Mean Corpuscular Volume 90.1 fL (80.0-100.0); Monocytes # (auto) 0.4 10 ^3/uL (0-1.3); Monocytes % (auto) 5.9 % (0.0-12.0); Neutrophils # (auto) 4.5 10 ^3/uL (1.6-8.6); Neutrophils % (auto) 73.3 % (37.0-80.0); Red Blood Cells 2.41 10^6/uL (4.5-5.90); Red Cell Distribution Width 15.8 % (11.8-14.3); White Blood Cell 6.2 10^3/uL (4.4-10.8)
[2021-09-20 20:00] VITALS: BP 105/69
[2021-09-20] MEDS ORDERED: FAT EMULSION30 IV NR ×9 (20:00)
[2021-09-20] MEDS ORDERED: [UNRECOGNIZED DRUG - OTHER] IV NR ×9 (20:00)
[2021-09-20] MEDS ORDERED: SODIUM PHOSPHATES IV NR ×9 (20:00)
[2021-09-20] MEDS ORDERED: POTASSIUM CHLORIDE IV NR ×9 (20:00)
[2021-09-20 22:00] VITALS: BP 105/69
[2021-09-21] VITALS (8 sets, daily range): BP systolic 90–117; BP diastolic 57–77
[2021-09-21] MEDS: InsuLIN REG 1unit/0.01ml Soln (100units/ml) SC SCH ×3 (06:00→17:39)
[2021-09-21] MEDS: ONDANSETRON HCL 4 MG/2 ML VIAL IV PRN (06:07)
[2021-09-21] MEDS: PIPERACILLIN-TAZOB 3.375GM 100 ML IV SCH ×3 (06:07→17:39)
[2021-09-21] MEDS: ACCU-CHEK COMFORT CURVE STRIP VI SCH ×3 (06:08→17:39)
[2021-09-21 07:38] LABS: Potassium 3.4 mmol/L (3.5-5.1)
[2021-09-21 07:43] LABS: BUN/Creatinine Ratio 28.7; Magnesium 2.6 mg/dL (1.6-2.6)
[2021-09-21 08:14] LABS: Basophils # (auto) 0 10 ^3/uL (0-0.2); Basophils % (auto) 0.7 % (0.0-2.0); Eosinophils # (auto) 0.1 10 ^3/uL (0-0.8); Eosinophils % (auto) 1.1 % (0.0-7.0); Hematocrit 20.3 % (41.0-53.0); Lymphocytes # (auto) 1.7 10 ^3/uL (0.4-5.4); Lymphocytes % (auto) 30.2 % (10.0-50.0); Mean Corpuscular Hemoglobin 29.7 pg (28.0-32.0); Mean Corpuscular Volume 90.1 fL (80.0-100.0); Monocytes # (auto) 0.3 10 ^3/uL (0-1.3); Monocytes % (auto) 6.3 % (0.0-12.0); Neutrophils # (auto) 3.4 10 ^3/uL (1.6-8.6); Neutrophils % (auto) 61.7 % (37.0-80.0); Nucleated Red Blood Cells % 0.2 %; Red Blood Cells 2.25 10^6/uL (4.5-5.90); Red Cell Distribution Width 15.6 % (11.8-14.3); White Blood Cell 5.5 10^3/uL (4.4-10.8)
[2021-09-21 08:21] LABS: Hemoglobin 6.7 g/dL (13.5-17.5)
[2021-09-21] MEDS: PANTOPRAZOLE 40 MG/10 ML VIAL INJ IV SCH (09:35)
[2021-09-21] MEDS: FLUCONAZOLE 200MG/100ML 100 ML IV SCH ×2 (09:35→11:00)
[2021-09-21] MEDS: SODIUM CHLOR 0.9% PF (SALINE LOCK) 10ML VIAL/SYR IV SCH ×2 (09:35→21:17)
[2021-09-21 11:42] LABS: Albumin 2.2 g/dL (3.4-5.0); Bilirubin, Direct 0.1 mg/dL (0-0.2)
[2021-09-21 11:45] LABS: Bilirubin, Total 0.5 mg/dL (0.2-1.0); Total Protein 6.6 g/dL (6.4-8.2)
[2021-09-21] MEDS ORDERED: POTASSIUM CHL 10MEQ/50ML 50 ML IV ONE (12:00)
[2021-09-21] MEDS ORDERED: TPN PER PHARMACY IV NR ×8 (20:00)
[2021-09-21] MEDS: CALCIUM CARB 500 MG CHEW TAB PO PRN (21:18)
[2021-09-22] MEDS: PIPERACILLIN-TAZOB 3.375GM 100 ML IV SCH ×5 (00:31→23:42)
[2021-09-22] MEDS: ACCU-CHEK COMFORT CURVE STRIP VI SCH ×5 (00:32→23:43)
[2021-09-22 04:57] VITALS: BP 101/67
[2021-09-22] MEDS: InsuLIN REG 1unit/0.01ml Soln (100units/ml) SC SCH ×5 (05:41→23:43)
[2021-09-22 05:58] LABS: Basophils # (auto) 0 10 ^3/uL (0-0.2); Basophils % (auto) 0.4 % (0.0-2.0); Eosinophils # (auto) 0.1 10 ^3/uL (0-0.8); Eosinophils % (auto) 1.2 % (0.0-7.0); Hematocrit 27.3 % (41.0-53.0); Hemoglobin 9.1 g/dL (13.5-17.5); Lymphocytes # (auto) 1.8 10 ^3/uL (0.4-5.4); Lymphocytes % (auto) 25.2 % (10.0-50.0); Mean Corpuscular Hemoglobin 30.3 pg (28.0-32.0); Mean Corpuscular Hgb Conc. 33.5 g/dL (32.0-36.0); Mean Corpuscular Volume 90.6 fL (80.0-100.0); Monocytes # (auto) 0.5 10 ^3/uL (0-1.3); Monocytes % (auto) 6.7 % (0.0-12.0); Neutrophils # (auto) 4.8 10 ^3/uL (1.6-8.6); Neutrophils % (auto) 66.5 % (37.0-80.0); Nucleated Red Blood Cells % 0.1 %; Red Blood Cells 3.01 10^6/uL (4.5-5.90); Red Cell Distribution Width 15.1 % (11.8-14.3); White Blood Cell 7.3 10^3/uL (4.4-10.8)
[2021-09-22 06:24] LABS: Magnesium 2.2 mg/dL (1.6-2.6); Phosphorus 3.7 mg/dL (2.5-4.90)
[2021-09-22 08:00] VITALS: BP 109/67
[2021-09-22] MEDS: PANTOPRAZOLE 40 MG/10 ML VIAL INJ IV SCH (08:42)
[2021-09-22] MEDS: FLUCONAZOLE 200MG/100ML 100 ML IV SCH ×2 (08:51→12:26)
[2021-09-22] MEDS: SODIUM CHLOR 0.9% PF (SALINE LOCK) 10ML VIAL/SYR IV SCH ×2 (08:56→22:00)
[2021-09-22 09:00] VITALS: BP 109/67
[2021-09-22 10:17] LABS: Albumin 2.4 g/dL (3.4-5.0); Calcium 8.3 mg/dL (8.5-10.1); Potassium 3.5 mmol/L (3.5-5.1)
[2021-09-22 10:20] LABS: BUN/Creatinine Ratio 31.2; Bilirubin, Total 0.7 mg/dL (0.2-1.0); Total Protein 6.7 g/dL (6.4-8.2)
[2021-09-22 13:08] VITALS: BP 108/68
[2021-09-22 17:00] VITALS: BP 125/78
[2021-09-22] MEDS ORDERED: TPN PER PHARMACY IV NR ×7 (20:00)
[2021-09-22 22:15] VITALS: BP 106/67
[2021-09-23] MEDS: InsuLIN REG 1unit/0.01ml Soln (100units/ml) SC SCH ×4 (06:15→23:38)
[2021-09-23] MEDS: ACCU-CHEK COMFORT CURVE STRIP VI SCH ×4 (06:17→23:38)
[2021-09-23 07:22] LABS: Basophils # (auto) 0 10 ^3/uL (0-0.2); Basophils % (auto) 0.4 % (0.0-2.0); Eosinophils # (auto) 0.1 10 ^3/uL (0-0.8); Hematocrit 26.8 % (41.0-53.0); Hemoglobin 8.9 g/dL (13.5-17.5); Lymphocytes # (auto) 1.5 10 ^3/uL (0.4-5.4); Lymphocytes % (auto) 23.3 % (10.0-50.0); Mean Corpuscular Hemoglobin 29.8 pg (28.0-32.0); Mean Corpuscular Hgb Conc. 33.1 g/dL (32.0-36.0); Monocytes # (auto) 0.3 10 ^3/uL (0-1.3); Monocytes % (auto) 5.2 % (0.0-12.0); Neutrophils # (auto) 4.6 10 ^3/uL (1.6-8.6); Neutrophils % (auto) 70.1 % (37.0-80.0); Nucleated Red Blood Cells % 0.1 %; Red Blood Cells 2.97 10^6/uL (4.5-5.90); Red Cell Distribution Width 15.4 % (11.8-14.3); White Blood Cell 6.6 10^3/uL (4.4-10.8)
[2021-09-23 08:00] VITALS: BP 101/64
[2021-09-23 08:01] LABS: Albumin 2.4 g/dL (3.4-5.0); Calcium 8.4 mg/dL (8.5-10.1); Magnesium 2.5 mg/dL (1.6-2.6); Potassium 3.6 mmol/L (3.5-5.1)
[2021-09-23 08:07] LABS: BUN/Creatinine Ratio 33.3; Bilirubin, Total 0.6 mg/dL (0.2-1.0); Phosphorus 2.4 mg/dL (2.5-4.90); Total Protein 6.9 g/dL (6.4-8.2)
[2021-09-23 08:46] VITALS: BP 95/57
[2021-09-23] MEDS: FLUCONAZOLE 200MG/100ML 100 ML IV SCH ×2 (10:13→11:13)
[2021-09-23] MEDS: PANTOPRAZOLE 40 MG/10 ML VIAL INJ IV SCH (10:13)
[2021-09-23] MEDS: SODIUM CHLOR 0.9% PF (SALINE LOCK) 10ML VIAL/SYR IV SCH ×2 (10:14→22:00)
[2021-09-23 13:00] VITALS: BP 101/64
[2021-09-23 16:49] VITALS: BP 117/64
[2021-09-23] MEDS ORDERED: TPN PER PHARMACY IV NR ×8 (20:00)
[2021-09-23 20:57] VITALS: BP 104/64
[2021-09-23 22:00] VITALS: BP 114/71
[2021-09-24] MEDS: METOCLOPRAMIDE HCL 5MG/ml INJ 2ml VIAL IV SCH ×2 (00:30→14:36)
[2021-09-24] MEDS: NYSTATIN (MOUTH-THROAT) 500,000 UNITS/5 ML SUSP MT SCH ×3 (00:30→18:12)
[2021-09-24 03:40] VITALS: BP 99/70
[2021-09-24] MEDS: ACCU-CHEK COMFORT CURVE STRIP VI SCH ×3 (05:56→18:12)
[2021-09-24] MEDS: PIPERACILLIN-TAZOB 3.375GM 100 ML IV SCH ×3 (05:56→18:11)
[2021-09-24] MEDS: InsuLIN REG 1unit/0.01ml Soln (100units/ml) SC SCH ×3 (05:57→18:00)
[2021-09-24 07:42] LABS: Potassium 3.9 mmol/L (3.5-5.1)
[2021-09-24 07:55] LABS: Albumin 2.5 g/dL (3.4-5.0); Bilirubin, Total 0.4 mg/dL (0.2-1.0); Calcium 8.7 mg/dL (8.5-10.1); Magnesium 2.5 mg/dL (1.6-2.6); Phosphorus 2.7 mg/dL (2.5-4.90)
[2021-09-24 08:00] VITALS: BP 94/66
[2021-09-24 09:00] VITALS: BP 94/66
[2021-09-24] MEDS: PANTOPRAZOLE 40 MG/10 ML VIAL INJ IV SCH (10:15)
[2021-09-24] MEDS: FLUCONAZOLE 200MG/100ML 100 ML IV SCH ×2 (10:16→11:00)
[2021-09-24] MEDS: SODIUM CHLOR 0.9% PF (SALINE LOCK) 10ML VIAL/SYR IV SCH ×2 (10:17→22:00)
[2021-09-24] MEDS ORDERED: diphenhdrAMINE HCL 50 MG/1 ML VL ONE (11:08)
[2021-09-24] MEDS ORDERED: SODIUM CHLORIDE LOCK 10 ML ONE (11:08)
[2021-09-24] MEDS ORDERED: LIDOCAINE VISCOUS 2% 15ML UD ONE (11:09)
[2021-09-24] MEDS: MIDAZOLAM HCL 5 MG/ML-1ML VIAL ONE ×2 (11:23→11:26)
[2021-09-24] MEDS: fentaNYL CITRATE 100 MCG/2 ML VL ONE ×2 (11:23→11:26)
[2021-09-24] MEDS ORDERED: MAGNESIUM CITRATE SOLUTION 300 ML BTL PO ONE (14:00)
[2021-09-24 17:00] VITALS: BP 114/75
[2021-09-24] MEDS ORDERED: MORPHINE SULFATE INJECTION 2 MG/ML SYRG IV PRN ×2 (18:30)
[2021-09-24] MEDS ORDERED: TPN PER PHARMACY IV NR ×9 (20:00)
[2021-09-24 22:30] VITALS: BP 102/69
[2021-09-25] MEDS: PIPERACILLIN-TAZOB 3.375GM 100 ML IV SCH ×3 (00:30→13:18)
[2021-09-25 05:15] VITALS: BP 102/69
[2021-09-25] MEDS: NYSTATIN (MOUTH-THROAT) 500,000 UNITS/5 ML SUSP MT SCH ×4 (05:40→22:47)
[2021-09-25] MEDS: METOCLOPRAMIDE HCL 5MG/ml INJ 2ml VIAL IV SCH ×3 (05:40→20:47)
[2021-09-25] MEDS ORDERED: MAGNESIUM CITRATE SOLUTION 300 ML BTL PO ONE (06:00)
[2021-09-25] MEDS: ACCU-CHEK COMFORT CURVE STRIP VI SCH ×3 (06:00→11:55)
[2021-09-25 07:53] LABS: Potassium 3.5 mmol/L (3.5-5.1)
[2021-09-25 08:00] LABS: Albumin 2.6 g/dL (3.4-5.0); BUN/Creatinine Ratio 35.3; Bilirubin, Total 0.6 mg/dL (0.2-1.0); Magnesium 3.1 mg/dL (1.6-2.6); Phosphorus 3.5 mg/dL (2.5-4.90); Total Protein 7.4 g/dL (6.4-8.2)
[2021-09-25 09:00] VITALS: BP 112/71
[2021-09-25] MEDS: FLUCONAZOLE 200MG/100ML 100 ML IV SCH ×2 (09:01→19:05)
[2021-09-25] MEDS: PANTOPRAZOLE 40 MG/10 ML VIAL INJ IV SCH (09:58)
[2021-09-25] MEDS: ONDANSETRON HCL 4 MG/2 ML VIAL IV PRN (09:58)
[2021-09-25 10:17] VITALS: BP 90/59
[2021-09-25] MEDS: InsuLIN REG 1unit/0.01ml Soln (100units/ml) SC SCH ×2 (12:00)
[2021-09-25 13:00] VITALS: BP 96/74
[2021-09-25] MEDS ORDERED: SODIUM CHLORIDE LOCK 10 ML ONE (13:23)
[2021-09-25] MEDS ORDERED: diphenhdrAMINE HCL 50 MG/1 ML VL ONE (13:23)
[2021-09-25] MEDS ORDERED: MIDAZOLAM HCL 5 MG/ML-1ML VIAL ONE (13:23)
[2021-09-25] MEDS ORDERED: fentaNYL CITRATE 100 MCG/2 ML VL ONE (13:24)
[2021-09-25] MEDS: SODIUM CHLORIDE 0.9% 1,000 ML IV SCH ×4 (14:45→20:43)
[2021-09-25 17:00] VITALS: BP 81/56
[2021-09-25] MEDS: SODIUM CHLOR 0.9% PF (SALINE LOCK) 10ML VIAL/SYR IV SCH ×2 (19:04→22:29)
[2021-09-25] MEDS ORDERED: TPN PER PHARMACY IV NR ×8 (20:00)
[2021-09-25 22:00] VITALS: BP 95/53
[2021-09-26] MEDS: SODIUM CHLORIDE 0.9% 1,000 ML IV SCH ×4 (00:38→21:33)
[2021-09-26] MEDS: PIPERACILLIN-TAZOB 3.375GM 100 ML IV SCH ×4 (05:59→23:22)
[2021-09-26] MEDS: ACCU-CHEK COMFORT CURVE STRIP VI SCH ×3 (06:00→23:22)
[2021-09-26] MEDS: METOCLOPRAMIDE HCL 5MG/ml INJ 2ml VIAL IV SCH ×3 (06:00→21:32)
[2021-09-26] MEDS: InsuLIN REG 1unit/0.01ml Soln (100units/ml) SC SCH ×3 (06:00→12:55)
[2021-09-26] MEDS: NYSTATIN (MOUTH-THROAT) 500,000 UNITS/5 ML SUSP MT SCH ×4 (06:00→21:39)
[2021-09-26 06:23] VITALS: BP 93/52
[2021-09-26 07:19] LABS: Potassium 3.7 mmol/L (3.5-5.1)
[2021-09-26 07:43] LABS: Albumin 2.2 g/dL (3.4-5.0); BUN/Creatinine Ratio 43.8; Bilirubin, Total 0.5 mg/dL (0.2-1.0); Calcium 8.2 mg/dL (8.5-10.1); Magnesium 3.7 mg/dL (1.6-2.6); Phosphorus 3.2 mg/dL (2.5-4.90)
[2021-09-26 09:00] VITALS: BP 94/62
[2021-09-26] MEDS: PANTOPRAZOLE 40 MG/10 ML VIAL INJ IV SCH (09:49)
[2021-09-26] MEDS: SODIUM CHLOR 0.9% PF (SALINE LOCK) 10ML VIAL/SYR IV SCH ×2 (09:49→21:20)
[2021-09-26] MEDS: FLUCONAZOLE 200MG/100ML 100 ML IV SCH ×2 (11:00→12:19)
[2021-09-26 12:00] VITALS: BP 87/53
[2021-09-26 15:09] VITALS: BP 108/63
[2021-09-26 17:00] VITALS: BP 98/46
[2021-09-26 20:00] VITALS: BP 98/59
[2021-09-26] MEDS ORDERED: TPN PER PHARMACY IV NR ×5 (20:00)
[2021-09-27 05:00] VITALS: BP 104/64
[2021-09-27] MEDS: ACCU-CHEK COMFORT CURVE STRIP VI SCH ×3 (05:39→20:55)
[2021-09-27] MEDS: NYSTATIN (MOUTH-THROAT) 500,000 UNITS/5 ML SUSP MT SCH ×4 (05:39→23:15)
[2021-09-27] MEDS: METOCLOPRAMIDE HCL 5MG/ml INJ 2ml VIAL IV SCH ×3 (05:40→22:41)
[2021-09-27] MEDS: InsuLIN REG 1unit/0.01ml Soln (100units/ml) SC SCH ×4 (05:46→20:55)
[2021-09-27] MEDS: PIPERACILLIN-TAZOB 3.375GM 100 ML IV SCH ×4 (05:47→23:36)
[2021-09-27] MEDS: SODIUM CHLORIDE 0.9% 1,000 ML IV SCH ×6 (06:17→21:48)
[2021-09-27 07:47] LABS: Potassium 4.4 mmol/L (3.5-5.1)
[2021-09-27 07:55] LABS: Albumin 2.2 g/dL (3.4-5.0); BUN/Creatinine Ratio 37.8; Bilirubin, Total 0.6 mg/dL (0.2-1.0); Calcium 8.3 mg/dL (8.5-10.1); Phosphorus 3.6 mg/dL (2.5-4.90); Total Protein 5.7 g/dL (6.4-8.2)
[2021-09-27 07:57] LABS: Pre Albumin 26.2 mg/dL (20.0-40.0)
[2021-09-27 09:00] VITALS: BP 90/78
[2021-09-27 09:00] LABS: Magnesium 7.3 mg/dL (1.6-2.6)
[2021-09-27] MEDS: FLUCONAZOLE 200MG/100ML 100 ML IV SCH ×2 (10:41→11:00)
[2021-09-27] MEDS: SODIUM CHLOR 0.9% PF (SALINE LOCK) 10ML VIAL/SYR IV SCH ×2 (10:42→22:41)
[2021-09-27] MEDS: PANTOPRAZOLE 40 MG/10 ML VIAL INJ IV SCH (10:42)
[2021-09-27 11:16] VITALS: BP 90/78
[2021-09-27 12:30] VITALS: BP 134/114
[2021-09-27] MEDS ORDERED: fentaNYL CITRATE 100 MCG/2 ML VL ONE (14:32)
[2021-09-27] MEDS ORDERED: LIDOCAINE 2% (LOCAL ANESTH.) PF 5ml SDV ONE (14:32)
[2021-09-27] MEDS ORDERED: PROPOFOL 10 MG/ML 20 ML IV ONE (14:32)
[2021-09-27] MEDS ORDERED: MIDAZOLAM HCL 2MG/2ML 2ml VIAL (1mg/ml) ONE (14:32)
[2021-09-27] MEDS ORDERED: NALOXONE HCL 0.4 MG/ML VIAL ONE ×2 (15:17→16:03)
[2021-09-27] MEDS ORDERED: ONDANSETRON HCL 4 MG/2 ML VIAL IV PRN (16:00)
[2021-09-27] MEDS ORDERED: NOREPINEPHRINE 8 MG/250ML KIT 250 ML IV ONE (16:28)
[2021-09-27] MEDS: NOREPINEPHRINE 8 MG/250ML KIT 250 ML IV SCH (16:30)
[2021-09-27] MEDS ORDERED: TPN PER PHARMACY IV NR ×4 (20:00)
[2021-09-27 23:31] VITALS: BP 95/62
[2021-09-27 23:46] VITALS: BP 62/42
[2021-09-28] VITALS (89 sets, daily range): BP systolic 81–118; BP diastolic 52–73
[2021-09-28] MEDS: NOREPINEPHRINE 8 MG/250ML KIT 250 ML IV SCH ×3 (00:17→19:41)
[2021-09-28] MEDS: ACCU-CHEK COMFORT CURVE STRIP VI SCH ×4 (01:00→17:30)
[2021-09-28] MEDS: InsuLIN REG 1unit/0.01ml Soln (100units/ml) SC SCH ×4 (01:00→17:23)
[2021-09-28 05:53] LABS: Potassium 4.7 mmol/L (3.5-5.1)
[2021-09-28 06:01] LABS: BUN/Creatinine Ratio 36.2; Bilirubin, Total 0.6 mg/dL (0.2-1.0); Calcium 7.6 mg/dL (8.5-10.1); Phosphorus 3.2 mg/dL (2.5-4.90); Total Protein 5.6 g/dL (6.4-8.2)
[2021-09-28] MEDS: METOCLOPRAMIDE HCL 5MG/ml INJ 2ml VIAL IV SCH ×3 (06:09→21:28)
[2021-09-28] MEDS: NYSTATIN (MOUTH-THROAT) 500,000 UNITS/5 ML SUSP MT SCH ×4 (06:09→21:28)
[2021-09-28] MEDS: PIPERACILLIN-TAZOB 3.375GM 100 ML IV SCH ×4 (06:09→23:28)
[2021-09-28] MEDS: PANTOPRAZOLE 40 MG/10 ML VIAL INJ IV SCH (10:09)
[2021-09-28] MEDS: FLUCONAZOLE 200MG/100ML 100 ML IV SCH ×2 (10:09→11:00)
[2021-09-28] MEDS: SODIUM CHLOR 0.9% PF (SALINE LOCK) 10ML VIAL/SYR IV SCH ×2 (10:10→21:28)
[2021-09-28] MEDS ORDERED: TPN PER PHARMACY IV NR ×4 (20:00)
[2021-09-29] VITALS (93 sets, daily range): BP systolic 78–115; BP diastolic 32–74
[2021-09-29] MEDS: ACCU-CHEK COMFORT CURVE STRIP VI SCH ×5 (00:15→23:53)
[2021-09-29] MEDS: InsuLIN REG 1unit/0.01ml Soln (100units/ml) SC SCH ×5 (00:16→23:53)
[2021-09-29] MEDS: NOREPINEPHRINE 8 MG/250ML KIT 250 ML IV SCH ×2 (03:33→22:45)
[2021-09-29] MEDS: METOCLOPRAMIDE HCL 5MG/ml INJ 2ml VIAL IV SCH ×3 (05:17→22:00)
[2021-09-29] MEDS: PIPERACILLIN-TAZOB 3.375GM 100 ML IV SCH ×4 (05:17→23:53)
[2021-09-29] MEDS: NYSTATIN (MOUTH-THROAT) 500,000 UNITS/5 ML SUSP MT SCH ×4 (05:17→22:00)
[2021-09-29 06:16] LABS: Albumin 1.9 g/dL (3.4-5.0); Calcium 7.8 mg/dL (8.5-10.1); Potassium 4.2 mmol/L (3.5-5.1)
[2021-09-29 06:21] LABS: BUN/Creatinine Ratio 34.9; Bilirubin, Total 0.6 mg/dL (0.2-1.0); Phosphorus 2.6 mg/dL (2.5-4.90); Total Protein 5.5 g/dL (6.4-8.2)
[2021-09-29] MEDS: PANTOPRAZOLE 40 MG/10 ML VIAL INJ IV SCH (08:59)
[2021-09-29] MEDS: SODIUM CHLOR 0.9% PF (SALINE LOCK) 10ML VIAL/SYR IV SCH ×2 (08:59→11:43)
[2021-09-29] MEDS: FLUCONAZOLE 200MG/100ML 100 ML IV SCH ×2 (10:40→11:42)
[2021-09-29] MEDS: PHENYLEPHRINE IV 250 ML IV SCH ×3 (11:43→23:56)
[2021-09-29] MEDS ORDERED: SODIUM CHLORIDE 0.9% 1,000 ML IV ONE ×2 (13:45→18:15)
[2021-09-29] MEDS ORDERED: ALBUMIN 25% 100 ML IV ONE (13:45)
[2021-09-29 14:40] LABS: Hematocrit 24.6 % (41.0-53.0); Hemoglobin 7.8 g/dL (13.5-17.5); Mean Corpuscular Hemoglobin 29.5 pg (28.0-32.0); Mean Corpuscular Hgb Conc. 31.8 g/dL (32.0-36.0); Red Blood Cells 2.64 10^6/uL (4.5-5.90); Red Cell Distribution Width 16.4 % (11.8-14.3); White Blood Cell 3.3 10^3/uL (4.4-10.8)
[2021-09-29 14:43] LABS: Basophils % (manual) 0 (0.0-2.0); Blast Cells 0; Eosinophils % (manual) 0 (0-7); Metamyelocytes % 0; Myelocytes % 0; Promyelocytes % 0
[2021-09-29 14:54] LABS: Calcium 7.8 mg/dL (8.5-10.1); Potassium 3.9 mmol/L (3.5-5.1)
[2021-09-29 15:00] LABS: Albumin 1.9 g/dL (3.4-5.0); BUN/Creatinine Ratio 30.5; Bilirubin, Total 0.7 mg/dL (0.2-1.0); Total Protein 5.4 g/dL (6.4-8.2)
[2021-09-29 15:07] LABS: INR 3.13 (0.9-1.15); Partial Thromboplastin Time 33.2 sec (23.6-33.0)
[2021-09-29] MEDS ORDERED: ACETAMINOPHEN IV 1000 MG/100ML (10MG/ML) IV ONE (15:30)
[2021-09-29 17:00] LABS: Band Neutrophils % (manual) 2; Lymphocytes % (manual) 69 (10.0-50.0); Monocytes % (manual) 2 (0-12); Reactive Lymphocytes 2
[2021-09-29 17:01] LABS: Lactic Acid w/Reflex 11.3 mmol/L (0.4-2.0)
[2021-09-29] MEDS ORDERED: TPN PER PHARMACY IV NR ×6 (20:00)
[2021-09-30] VITALS (92 sets, daily range): BP systolic 57–136; BP diastolic 12–93
[2021-09-30] MEDS ORDERED: ACETAMINOPHEN IV 1000 MG/100ML (10MG/ML) IV ONE (01:45)
[2021-09-30] MEDS: VASOPRESSIN 50 UNITS in D5W 5% 247.5 ML IV SCH (02:45)
[2021-09-30 04:57] LABS: Mean Corpuscular Volume 96.2 fL (80.0-100.0); White Blood Cell 2.1 10^3/uL (4.4-10.8)
[2021-09-30 04:59] LABS: Hemoglobin 7.6 g/dL (13.5-17.5); Mean Corpuscular Hemoglobin 30.6 pg (28.0-32.0); Mean Corpuscular Hgb Conc. 31.9 g/dL (32.0-36.0); Red Blood Cells 2.49 10^6/uL (4.5-5.90); Red Cell Distribution Width 17.2 % (11.8-14.3)
[2021-09-30 05:11] LABS: Basophils % (manual) 0 (0.0-2.0); Blast Cells 0; Eosinophils % (manual) 0 (0-7); Metamyelocytes % 0; Promyelocytes % 0; Reactive Lymphocytes 0
[2021-09-30 05:16] LABS: BUN/Creatinine Ratio 25.4; Calcium 7.3 mg/dL (8.5-10.1); Potassium 3.9 mmol/L (3.5-5.1)
[2021-09-30 05:18] LABS: INR 3.85 (0.9-1.15); Phosphorus 3.4 mg/dL (2.5-4.90); Total Protein 5.1 g/dL (6.4-8.2)
[2021-09-30] MEDS: METOCLOPRAMIDE HCL 5MG/ml INJ 2ml VIAL IV SCH ×3 (05:31→22:00)
[2021-09-30] MEDS: NYSTATIN (MOUTH-THROAT) 500,000 UNITS/5 ML SUSP MT SCH ×4 (05:32→22:00)
[2021-09-30] MEDS: PIPERACILLIN-TAZOB 3.375GM 100 ML IV SCH (05:32)
[2021-09-30] MEDS: InsuLIN REG 1unit/0.01ml Soln (100units/ml) SC SCH ×3 (05:38→18:40)
[2021-09-30] MEDS: ACCU-CHEK COMFORT CURVE STRIP VI SCH ×4 (05:38→18:40)
[2021-09-30 05:58] LABS: Monocytes % (manual) 4 (0-12); Myelocytes % 2
[2021-09-30 05:59] LABS: Band Neutrophils % (manual) 13; Lymphocytes % (manual) 68 (10.0-50.0)
[2021-09-30] MEDS: PHENYLEPHRINE IV 250 ML IV SCH (06:42)
[2021-09-30] MEDS ORDERED: EPINEPHrine HCL 250 ML IV ONE (08:19)
[2021-09-30] MEDS ORDERED: MEROPENEM 1GM IVPB 100 ML IV SCH (09:26)
[2021-09-30] MEDS ORDERED: VANCOMYCIN PER PHARMACY 0 MG IV STA (09:26)
[2021-09-30] MEDS ORDERED: GENTAMICIN SULFATE 80 MG in D5W 5% 100 ML IV ONE (09:45)
[2021-09-30] MEDS ORDERED: VANCOMYCIN 1GM/250ML 250 ML IV ONE (09:45)
[2021-09-30] MEDS: PANTOPRAZOLE 40 MG/10 ML VIAL INJ IV SCH (10:00)
[2021-09-30] MEDS: SODIUM CHLOR 0.9% PF (SALINE LOCK) 10ML VIAL/SYR IV SCH ×2 (10:00→22:00)
[2021-09-30] MEDS ORDERED: SODIUM BICARBONATE 8.4 % INJ 50ML VIAL IV ONE ×3 (10:15→19:30)
[2021-09-30] MEDS ORDERED: ETOMIDATE (2MG/ML) 20ML VIAL IV ONE ×2 (10:28→11:45)
[2021-09-30] MEDS ORDERED: SODIUM BICARBONATE 8.4% INJ 50ML SYRINGE ONE ×2 (10:29→11:08)
[2021-09-30] MEDS ORDERED: ROCURONIUM 10MG/ML 10ML VIAL IV ONE ×2 (10:29→11:45)
[2021-09-30] MEDS ORDERED: VANCOMYCIN PER PHARMACY 0 MG IV SCH (11:30)
[2021-09-30] MEDS: SODIUM BICARBONATE 50ML VIAL 150 ML in D5W 5% 1,000 ML IV SCH (13:52)
[2021-09-30] MEDS ORDERED: ALBUMIN 25% 100 ML IV ONE (14:00)
[2021-09-30] MEDS: PHENYLEPHRINE INJ 80 MG in SODIUM CHL 0.9% 242 ML IV SCH ×2 (16:54→22:50)
[2021-09-30] MEDS: NOREPINEPHRINE BITARTRATE 32 MG in SODIUM CHL 0.9% 218 ML IV SCH ×2 (16:55→22:50)
[2021-09-30] MEDS: EPINEPHrine HCL 250 ML IV SCH (16:56)
[2021-09-30] MEDS: MIDAZOLAM DRIP 50 mg/50mL 50 ML IV SCH (16:59)
[2021-09-30] MEDS: HYDROCORTISONE SOD SUCC 100 MG/2ML INJ VIAL IV SCH ×2 (17:00→20:30)
[2021-09-30] MEDS: MICAFUNGIN SODIUM 100 MG in SODIUM CHL 0.9% 100 ML IV SCH (18:24)
[2021-09-30] MEDS: fentaNYL Drip 2500mCg/250mlNS 250 ML IV SCH (18:44)
[2021-09-30] MEDS ORDERED: TPN PER PHARMACY IV NR ×6 (20:00)
[2021-09-30] MEDS: MEROPENEM 1GM IVPB 100 ML IV SCH (20:34)
[2021-10-01] VITALS (107 sets, daily range): BP systolic 32–145; BP diastolic 14–103
[2021-10-01 01:05] LABS: Hematocrit 17.6 % (41.0-53.0); Mean Corpuscular Hemoglobin 29.5 pg (28.0-32.0); Mean Corpuscular Hgb Conc. 28.9 g/dL (32.0-36.0); Mean Corpuscular Volume 102.3 fL (80.0-100.0); Red Blood Cells 1.72 10^6/uL (4.5-5.90); Red Cell Distribution Width 17.8 % (11.8-14.3); White Blood Cell 2.5 10^3/uL (4.4-10.8)
[2021-10-01 01:20] LABS: Partial Thromboplastin Time 49.3 sec (23.6-33.0)
[2021-10-01 01:39] LABS: Lactic Acid w/Reflex 26.4 mmol/L (0.4-2.0)
[2021-10-01] MEDS: EPINEPHrine HCL 250 ML IV SCH ×2 (01:45→22:35)
[2021-10-01 01:46] LABS: INR 4.29 (0.9-1.15)
[2021-10-01 01:50] LABS: Hemoglobin 5.1 g/dL (13.5-17.5)
[2021-10-01 01:52] LABS: Basophils % (manual) 0 (0.0-2.0); Promyelocytes % 0; Reactive Lymphocytes 0
[2021-10-01] MEDS ORDERED: PHYTONADIONE (VIT K)10 MG/ML 1ML VIAL SUBCUT ONE (02:00)
[2021-10-01] MEDS: MEROPENEM 1GM IVPB 100 ML IV SCH ×2 (02:00→16:45)
[2021-10-01] MEDS: HYDROCORTISONE SOD SUCC 100 MG/2ML INJ VIAL IV SCH ×4 (02:30→20:30)
[2021-10-01] MEDS: VASOPRESSIN 50 UNITS in D5W 5% 247.5 ML IV SCH (02:45)
[2021-10-01 04:56] LABS: Band Neutrophils % (manual) 20; Eosinophils % (manual) 2 (0-7); Lymphocytes % (manual) 51 (10.0-50.0); Metamyelocytes % 5; Monocytes % (manual) 3 (0-12)
[2021-10-01 04:57] LABS: Blast Cells 1; Myelocytes % 6
[2021-10-01 05:21] LABS: Albumin 1.6 g/dL (3.4-5.0); Calcium 6.3 mg/dL (8.5-10.1); Potassium 3.9 mmol/L (3.5-5.1)
[2021-10-01 05:26] LABS: Bilirubin, Total 0.5 mg/dL (0.2-1.0); Phosphorus 7.4 mg/dL (2.5-4.90); Total Protein 3.8 g/dL (6.4-8.2)
[2021-10-01] MEDS: InsuLIN REG 1unit/0.01ml Soln (100units/ml) SC SCH ×4 (06:00→17:56)
[2021-10-01] MEDS: NYSTATIN (MOUTH-THROAT) 500,000 UNITS/5 ML SUSP MT SCH ×4 (06:00→22:00)
[2021-10-01] MEDS: METOCLOPRAMIDE HCL 5MG/ml INJ 2ml VIAL IV SCH ×3 (06:00→22:00)
[2021-10-01] MEDS: ACCU-CHEK COMFORT CURVE STRIP VI SCH ×3 (06:00→17:53)
[2021-10-01] MEDS ORDERED: SODIUM BICARBONATE 8.4 % INJ 50ML VIAL IV ONE (09:45)
[2021-10-01] MEDS: PANTOPRAZOLE 40 MG/10 ML VIAL INJ IV SCH (10:23)
[2021-10-01] MEDS: SODIUM CHLOR 0.9% PF (SALINE LOCK) 10ML VIAL/SYR IV SCH ×2 (10:23→22:00)
[2021-10-01] MEDS: MICAFUNGIN SODIUM 100 MG in SODIUM CHL 0.9% 100 ML IV SCH (10:23)
[2021-10-01] MEDS: SODIUM BICARBONATE 50ML VIAL 150 ML in D5W 5% 1,000 ML IV SCH ×5 (13:01→23:30)
[2021-10-01] MEDS: MIDAZOLAM DRIP 50 mg/50mL 50 ML IV SCH (17:20)
[2021-10-01] MEDS ORDERED: VANCOMYCIN 1GM/250ML 250 ML IV ONE (18:00)
[2021-10-01] MEDS ORDERED: TPN PER PHARMACY IV NR ×6 (20:00)
[2021-10-01] MEDS: fentaNYL Drip 2500mCg/250mlNS 250 ML IV SCH (22:00)
[2021-10-02] VITALS (12 sets, daily range): BP systolic 40–82; BP diastolic 10–29
[2021-10-02] MEDS: ACCU-CHEK COMFORT CURVE STRIP VI SCH
[2021-10-02] MEDS: InsuLIN REG 1unit/0.01ml Soln (100units/ml) SC SCH
[2021-10-02] MEDS ORDERED: MEROPENEM 500MG IVPB 50 ML IV SCH (05:00)
== END 2021-10-02 10:45 | DRG 853 ==
LOC: ER 10:21 → TELE 23:32 → TELE-CENTR 09-05 08:54 → DOU IN ICU 09-27 21:51
PROVIDERS: ADMIT Nurse Practitioner Family; ATTEND Internal Medicine
PROC: 0V950ZZ Drainage of Scrotum, Open Approach (ICD-10-PCS; 2021-09-05)
PROC: 02HV33Z Insertion of Infusion Device into Superior Vena Cava, Percutaneous Approach (ICD-10-PCS; 2021-09-07)
PROC: 0KBN0ZZ Excision of Right Hip Muscle, Open Approach (ICD-10-PCS; principal; 2021-09-09 12:32)
PROC: 30233N1 Transfusion of Nonautologous Red Blood Cells into Peripheral Vein, Percutaneous Approach (ICD-10-PCS; 2021-09-14)
PROC: 0Y9C0ZZ Drainage of Right Upper Leg, Open Approach (ICD-10-PCS; 2021-09-18)
PROC: 0W9L0ZZ Drainage of Lower Back, Open Approach (ICD-10-PCS; 2021-09-18)
PROC: 06H03DZ Insertion of Intraluminal Device into Inferior Vena Cava, Percutaneous Approach (ICD-10-PCS; 2021-09-18)
PROC: B5191ZZ Fluoroscopy of Inferior Vena Cava using Low Osmolar Contrast (ICD-10-PCS; 2021-09-18)
PROC: 0DB98ZX Excision of Duodenum, Via Natural or Artificial Opening Endoscopic, Diagnostic (ICD-10-PCS; 2021-09-24)
PROC: 0DB68ZX Excision of Stomach, Via Natural or Artificial Opening Endoscopic, Diagnostic (ICD-10-PCS; 2021-09-24)
PROC: 0DJD8ZZ Inspection of Lower Intestinal Tract, Via Natural or Artificial Opening Endoscopic (ICD-10-PCS; 2021-09-27)
PROC: 4A143B0 Monitoring of Venous Pressure, Central, Percutaneous Approach (ICD-10-PCS; 2021-09-30)
PROC: 02HV33Z Insertion of Infusion Device into Superior Vena Cava, Percutaneous Approach (ICD-10-PCS; 2021-09-30)
PROC: B548ZZA Ultrasonography of Superior Vena Cava, Guidance (ICD-10-PCS; 2021-09-30)
PROC: 04HY32Z Insertion of Monitoring Device into Lower Artery, Percutaneous Approach (ICD-10-PCS; 2021-09-30)
PROC: 4A133B1 Monitoring of Arterial Pressure, Peripheral, Percutaneous Approach (ICD-10-PCS; 2021-09-30)
PROC: 4A133J1 Monitoring of Arterial Pulse, Peripheral, Percutaneous Approach (ICD-10-PCS; 2021-09-30)
PROC: 5A1935Z Respiratory Ventilation, Less than 24 Consecutive Hours (ICD-10-PCS; 2021-09-30)
PROC: 0BH17EZ Insertion of Endotracheal Airway into Trachea, Via Natural or Artificial Opening (ICD-10-PCS; 2021-09-30)
PROC: 30233K1 Transfusion of Nonautologous Frozen Plasma into Peripheral Vein, Percutaneous Approach (ICD-10-PCS; 2021-09-30)
DX: A41.51 Sepsis due to Escherichia coli [E. coli] (principal); J96.01 Acute respiratory failure with hypoxia; R65.21 Severe sepsis with septic shock; G92.8 Other toxic encephalopathy; I96 Gangrene, not elsewhere classified; G82.20 Paraplegia, unspecified; N17.9 Acute kidney failure, unspecified; N39.0 Urinary tract infection, site not specified; B37.0 Candidal stomatitis; E87.0 Hyperosmolality and hypernatremia; E87.1 Hypo-osmolality and hyponatremia; G93.1 Anoxic brain damage, not elsewhere classified; I82.411 Acute embolism and thrombosis of right femoral vein; I82.431 Acute embolism and thrombosis of right popliteal vein; L02.215 Cutaneous abscess of perineum; K56.7 Ileus, unspecified; Q43.8 Other specified congenital malformations of intestine; E44.0 Moderate protein-calorie malnutrition; K61.2 Anorectal abscess; F41.9 Anxiety disorder, unspecified; N31.9 Neuromuscular dysfunction of bladder, unspecified; I46.9 Cardiac arrest, cause unspecified; K21.9 Gastro-esophageal reflux disease without esophagitis; K29.70 Gastritis, unspecified, without bleeding; K29.80 Duodenitis without bleeding; K29.90 Gastroduodenitis, unspecified, without bleeding; K31.3 Pylorospasm, not elsewhere classified; K31.84 Gastroparesis; Z66 Do not resuscitate; T36.95XA Adverse effect of unspecified systemic antibiotic, initial encounter; K64.8 Other hemorrhoids; L89.150 Pressure ulcer of sacral region, unstageable; L89.210 Pressure ulcer of right hip, unstageable; L89.610 Pressure ulcer of right heel, unstageable; L89.220 Pressure ulcer of left hip, unstageable; D64.9 Anemia, unspecified; D69.6 Thrombocytopenia, unspecified; E83.41 Hypermagnesemia; S30.810A Abrasion of lower back and pelvis, initial encounter; Z20.822 Contact with and (suspected) exposure to COVID-19; N49.2 Inflammatory disorders of scrotum; X58.XXXA Exposure to other specified factors, initial encounter; Z82.49 Family history of ischemic heart disease and other diseases of the circulatory system; Z86.718 Personal history of other venous thrombosis and embolism; Z79.01 Long term (current) use of anticoagulants; Z87.440 Personal history of urinary (tract) infections; Z74.01 Bed confinement status; Z87.891 Personal history of nicotine dependence; Y92.89 Other specified places as the place of occurrence of the external cause; Y93.89 Activity, other specified; Y99.8 Other external cause status; Z51.5 Encounter for palliative care; Z93.3 Colostomy status; Z95.828 Presence of other vascular implants and grafts; R74.01 Elevation of levels of liver transaminase levels; Z68.26 Body mass index [BMI] 26.0-26.9, adult
CPT/HCPCS: 36415; 36569; 36600; 37191; 37619; 43239; 71045; 74018; 74177; 76870; 76942; 80048; 80053; 80076; 80202; 81001; 82040; 82805; 82962; 83605; 83735; 84100; 84478; 85007; 85014; 85018; 85025; 85027; 85610; 85730; 86850; 86900; 86901; 86920; 87040; 87070; 87075; 87076; 87077; 87081; 87086; 87088; 87186; 87205; 87426; 93005; 93970; 94002; 94003; 96361; 96365; 97110; 97163; 99152; 99153; A4565; C9113; G0378; J0131; J0171; J0690; J1100; J1450; J1756; J1815; J2001; J2185; J2248; J2250; J2405; J2543; J2704; J3430; J3490; J7060; J7131; P9047